=== PATIENT | male | born 1950 | race Caucasian/White ===

== ENCOUNTER 2017-08-02 02:48 | Outpatient (CLI) | payer MEDICARE, BC ==
[~2017-08-02 02:48] MED LIST: AMLO10TA PO; ASPI-1265 PO; ATOR-2 PO; CARV-49 PO; FURO20TA4 PO; GABA-532 PO; INSU100I31 SQ; INSU100V13 SQ; LEVO112T5 PO; MULT-1179 PO; MYCO250C PO; PANT40TA4 PO; TACR0.5C3 PO
== END 2017-08-02 23:59 | disposition home or self-care (01) ==
LOC: DIABETIC 02:48
PROVIDERS: ATTEND Specialist
DX: E10.65 Type 1 diabetes mellitus with hyperglycemia (principal); E10.22 Type 1 diabetes mellitus with diabetic chronic kidney disease; I12.9 Hypertensive chronic kidney disease with stage 1 through stage 4 chronic kidney disease, or unspecified chronic kidney disease; N18.9 Chronic kidney disease, unspecified
CPT/HCPCS: G0109

== ENCOUNTER 2018-02-06 15:51 | Emergency (ER) | payer MEDICARE, BC ==
[~2018-02-06] VITALS: Ht 182.9 cm; Wt 96.8 kg
[2018-02-06 17:16] VITALS: BP 113/61
== END 2018-02-06 17:45 | disposition home or self-care (01) ==
LOC: ER 15:51
DX: S92.521A Displaced fracture of middle phalanx of right lesser toe(s), initial encounter for closed fracture (principal); E11.9 Type 2 diabetes mellitus without complications; Z79.82 Long term (current) use of aspirin; Z79.4 Long term (current) use of insulin; W22.8XXA Striking against or struck by other objects, initial encounter; Y93.89 Activity, other specified; Y92.89 Other specified places as the place of occurrence of the external cause; Y99.8 Other external cause status
CPT/HCPCS: 73660; 99284; L3260

== ENCOUNTER 2018-10-17 14:41 | Inpatient (IN) | payer MEDICARE, BC | END 2018-10-20 10:45 | disposition home or self-care (01) | LOC: ER 14:41 → PCU 3S 20:31 | DX: I50.33 Acute on chronic diastolic (congestive) heart failure (principal); N18.6 End stage renal disease; Z94.0 Kidney transplant status; I95.1 Orthostatic hypotension; E11.21 Type 2 diabetes mellitus with diabetic nephropathy; E11.40 Type 2 diabetes mellitus with diabetic neuropathy, unspecified; I65.23 Occlusion and stenosis of bilateral carotid arteries ==

== ENCOUNTER 2019-01-31 10:35 | Inpatient (IN) | payer MEDICARE, BC ==
[~2019-01-31] VITALS: Ht 182.9 cm; Wt 96.4 kg
[~2019-01-31 10:35] MED LIST changes: -AMLO10TA PO; -CARV-49 PO; +CARV6.253 PO; +FLUT1DIS10 IH; +FOLI1TAB34 PO; -INSU100I31 SQ; +INSU100I31 SUBCUT; -LEVO112T5 PO; +LEVO125T68 PO; -MULT-1179 PO; -TACR0.5C3 PO; +TACR1CAP PO
--- NOTE | 2019-01-31 11:22 | NUR ---
PT GETTING LABS DRAWN IN ROOM 18
[2019-01-31 11:59] LABS: BASOPHILS # (AUTO) 0.1 X10'3 (0-0.2); BASOPHILS % (AUTO) 0.7 % (0-1); EOSINOPHILS % (AUTO) 0 % (0-6); HEMATOCRIT 40.6 % (42.0-52.0); HEMOGLOBIN 13.2 g/dl (14.0-17.9); LYMPHOCYTES # (AUTO) 0.2 X10'3 (1.1-4.8); LYMPHOCYTES % (AUTO) 1.7 % (21-51); MEAN CORPUSCULAR HEMOGLOBIN 27.7 PG (27.0-31.0); MEAN CORPUSCULAR HGB CONC 32.6 g/dL (33.0-36.5); MEAN CORPUSCULAR VOLUME 84.9 FL (78-98); MEAN PLATELET VOLUME 9.2 FL (7.4-10.4); MONOCYTES # (AUTO) 0.9 X10'3 (0-0.9); MONOCYTES % (AUTO) 6.2 % (2-12); NEUTROPHILS # (AUTO) 13.3 X10'3 (1.8-7.7); NEUTROPHILS % (AUTO) 91.4 % (42-75); PLATELET COUNT 147 X10'3 (140-440); RED BLOOD COUNT 4.78 X10'6 (4.70-6.10); RED CELL DISTRIBUTION WIDTH 14.3 % (11.5-14.5); WHITE BLOOD COUNT 14.6 X10'3 (4.5-11.0)
[2019-01-31 12:05] LABS: CLARITY,URINE CLOUDY (Clear); COLOR,URINE YELLOW (Yellow); GLUCOSE, URINE 500 mg/dl (Neg); KETONES,URINE NEGATIVE (Neg); LEUKOCYTE ESTERASE ,URINE LARGE (Neg); NITRITES, URINE NEGATIVE (Neg); OCCULT BLOOD,URINE MODERATE (Neg); PH,URINE 5.5 (4.8-8.0); PROTEIN,URINE 30 mg/dl (Neg); UROBILINOGEN,URINE 0.2 E.U/dL (0.2-1.0)
[2019-01-31 12:12] LABS: UA COLLECTION TYPE CLN CATCH MIDSTREAM
[2019-01-31 12:15] LABS: BACTERIA,URINE 4+ /HPF (Neg); WBC,URINE TNTC /HPF (0-4)
[2019-01-31 12:16] LABS: RBC,URINE 0-2 /HPF (0-2); SQUAMOUS EPITHELIAL CELL,UR FEW /LPF (FEW)
[2019-01-31 12:18] LABS: ALANINE AMINOTRANSFERASE 27 U/L (12-78); ALBUMIN 3.1 G/DL (3.4-5.0); ALBUMIN/GLOBULIN RATIO 0.9 (1.1-1.5); ALKALINE PHOSPHATASE 100 IU/L (46-116); ANION GAP 9 (8-16); ASPARTATE AMINO TRANSFERASE 16 U/L (10-37); BILIRUBIN,TOTAL 0.9 MG/DL (0.1-1.0); BLOOD UREA NITROGEN 36 MG/DL (7-18); BUN/CREATININE RATIO 14.7 (5.4-32.0); CALCIUM 8.8 MG/DL (8.5-10.1); CHLORIDE 95 MMOL/L (99-107); CREATININE 2.45 MG/DL (0.60-1.10); GLUCOSE 319 MG/DL (70-104); SODIUM 129 MMOL/L (135-145); TOTAL CARBON DIOXIDE 25.1 MMOL/L (24-32); TOTAL PROTEIN 6.7 G/DL (6.4-8.2); eGFR 27 ML/MIN
[2019-01-31 12:26] LABS: TRANSITIONAL EPI CELLS,URINE MODERATE /HPF
[2019-01-31 12:28] LABS: SPERM FEW /HPF (NEGATIVE)
[2019-01-31 12:38] LABS: PARTIAL THROMBOPLASTIN TIME 37 SECONDS (22-32)
[2019-01-31] MEDS ORDERED: CefTRIAXone 2gm/D5W 50ml 50 ML IV ONE (13:15)
[2019-01-31] MEDS ORDERED: normal saline 1000ML IV soln IVB ONE (13:15)
[2019-01-31] MEDS ORDERED: AMLO5TAB10 PO (13:39)
--- NOTE | 2019-01-31 14:18 | NUR ---
ADDITIONAL CALL TO [place] [facility], NO BEDS.
--- NOTE | 2019-01-31 16:03 | NUR ---
BS 266
[2019-01-31] MEDS ORDERED: potassium Cl 20 mEq SR tablet PO PRN ×2 (17:10)
[2019-01-31] MEDS ORDERED: MESSAGE TO PHARMACY PO ONE (17:10)
[2019-01-31] MEDS ORDERED: potassium CL 10mEq/100ml bag 100 ML IV PRN ×2 (17:10)
[2019-01-31] MEDS ORDERED: dextrose ORAL solution 15 GM/59 ML bottle PO PRN ×2 (17:10)
[2019-01-31] MEDS ORDERED: dextrose 50%-water 50ml dispensing syringe IV PRN ×2 (17:10)
[2019-01-31] MEDS ORDERED: acetaminophen 325mg tablet PO PRN ×2 (17:10)
[2019-01-31] MEDS ORDERED: glucagon, human recombinant 1mg kit SUBCUT PRN (17:10)
[2019-01-31] MEDS ORDERED: CefTRIAXone/D5W-Rocephin 1gm 50 ML IV ONE (17:15)
[2019-01-31] MEDS: normal saline 1000ml 1,000 ML IV SCH (17:42)
[2019-01-31 19:16] LABS: CLARITY,URINE TURBID (Clear); COLOR,URINE YELLOW (Yellow); GLUCOSE, URINE 250 mg/dl (Neg); KETONES,URINE NEGATIVE (Neg); LEUKOCYTE ESTERASE ,URINE MODERATE (Neg); NITRITES, URINE POSITIVE (Neg); OCCULT BLOOD,URINE MODERATE (Neg); PH,URINE 5.5 (4.8-8.0); PROTEIN,URINE 30 mg/dl (Neg); UROBILINOGEN,URINE 0.2 E.U/dL (0.2-1.0)
[2019-01-31 19:24] LABS: UA COLLECTION TYPE URINAL
[2019-01-31 19:26] LABS: RBC,URINE 0-2 /HPF (0-2); WBC,URINE 50-100 /HPF (0-4)
[2019-01-31 19:29] LABS: BACTERIA,URINE 3+ /HPF (Neg); COARSE GRANULAR CAST 0-3 /LPF (NEGATIVE); SQUAMOUS EPITHELIAL CELL,UR FEW /LPF (FEW)
[2019-01-31 19:30] VITALS: BP 174/64
[2019-01-31 19:54] LABS: UA EOSINOPHILS RARE EOS /HPF
[2019-01-31] MEDS ORDERED: tacrolimus anhydrous 1mg capsule PO SCH (20:00)
[2019-01-31] MEDS: docusate sod 100mg capsule PO SCH (20:00)
[2019-01-31] MEDS ORDERED: insulin glargine (Lantus) pen - multi-dose SQ SCH (20:00)
--- NOTE | 2019-01-31 20:00 | NUR ---
Received report from Jessee, will assess patient when he arrives. Will continue to monitor.
[2019-01-31] MEDS: carvedilol 6.25mg tablet PO SCH (20:13)
[2019-01-31] MEDS: gabapentin 300mg capsule PO SCH (20:14)
[2019-01-31] MEDS: atorvastatin 20mg tablet PO SCH (20:14)
[2019-01-31] MEDS: heparin, porcine 5000 units/ml vial SQ SCH (20:16)
[2019-01-31] MEDS ORDERED: temazepam 15mg capsule PO PRN (21:00)
[2019-01-31] MEDS: insulin glargine (Lantus) pen - multi-dose SQ SCH (22:14)
[2019-01-31] MEDS: insulin Lispro (HumaLOG) vial - multi-dose SQ SCH (22:15)
[2019-02-01] VITALS: BP 175/72
[2019-02-01 02:24] VITALS: BP 158/46
[2019-02-01] MEDS ORDERED: hydrALAZINE 20mg/ml inj. IV PRN (02:25)
[2019-02-01] MEDS: normal saline 1000ml 1,000 ML IV SCH ×2 (03:48→14:08)
[2019-02-01 06:21] LABS: BASOPHILS % (AUTO) 0.3 % (0-1); EOSINOPHILS % (AUTO) 0 % (0-6); HEMATOCRIT 39.1 % (42.0-52.0); HEMOGLOBIN 12.9 g/dl (14.0-17.9); LYMPHOCYTES # (AUTO) 0.4 X10'3 (1.1-4.8); LYMPHOCYTES % (AUTO) 3.3 % (21-51); MEAN CORPUSCULAR HEMOGLOBIN 27.8 PG (27.0-31.0); MEAN CORPUSCULAR VOLUME 84.3 FL (78-98); MEAN PLATELET VOLUME 10.2 FL (7.4-10.4); MONOCYTES % (AUTO) 9.1 % (2-12); NEUTROPHILS # (AUTO) 10.1 X10'3 (1.8-7.7); NEUTROPHILS % (AUTO) 87.3 % (42-75); PLATELET COUNT 146 X10'3 (140-440); RED BLOOD COUNT 4.64 X10'6 (4.70-6.10); RED CELL DISTRIBUTION WIDTH 14.3 % (11.5-14.5); WHITE BLOOD COUNT 11.5 X10'3 (4.5-11.0)
[2019-02-01 06:31] LABS: ALANINE AMINOTRANSFERASE 22 U/L (12-78); ALBUMIN 2.5 G/DL (3.4-5.0); ALBUMIN/GLOBULIN RATIO 0.7 (1.1-1.5); ALKALINE PHOSPHATASE 103 IU/L (46-116); ANION GAP 9 (8-16); ASPARTATE AMINO TRANSFERASE 17 U/L (10-37); BILIRUBIN,TOTAL 0.6 MG/DL (0.1-1.0); BLOOD UREA NITROGEN 31 MG/DL (7-18); BUN/CREATININE RATIO 16.9 (5.4-32.0); CALCIUM 8.5 MG/DL (8.5-10.1); CHLORIDE 99 MMOL/L (99-107); CREATININE 1.83 MG/DL (0.60-1.10); GLUCOSE 264 MG/DL (70-104); MAGNESIUM 1.7 MG/DL (1.5-2.4); PHOSPHORUS 2.7 MG/DL (2.3-4.5); POTASSIUM 4.8 MMOL/L (3.5-5.1); SODIUM 132 MMOL/L (135-145); TOTAL CARBON DIOXIDE 24.1 MMOL/L (24-32); TOTAL PROTEIN 6.1 G/DL (6.4-8.2); eGFR 37 ML/MIN
--- NOTE | 2019-02-01 06:57 | NUR ---
Problems reprioritized. Patient report given, questions answered & plan of care reviewed with Bárbara BOBO.
[2019-02-01] MEDS ORDERED: non-formulary drug (Insulin Aspart (Novolog) 1 UNITS) SQ SCH (07:00)
[2019-02-01 08:00] VITALS: BP 148/60
[2019-02-01] MEDS: K and/or MAG REPLACEMENT MC SCH (08:00)
[2019-02-01] MEDS: docusate sod 100mg capsule PO SCH ×2 (08:00→20:00)
[2019-02-01] MEDS: amLODIPine 5mg tablet PO SCH (08:51)
[2019-02-01] MEDS: carvedilol 6.25mg tablet PO SCH ×2 (08:51→20:07)
[2019-02-01] MEDS: levoTHYROXINE 125mcg tablet PO SCH (08:52)
[2019-02-01] MEDS: folic acid/vitamin B complex w/vitamin C 0.8mg tablet PO SCH (08:52)
[2019-02-01] MEDS: aspirin 81mg tab.chew PO SCH (08:52)
[2019-02-01] MEDS: heparin, porcine 5000 units/ml vial SQ SCH ×2 (08:55→20:08)
[2019-02-01] MEDS: CefTRIAXone/D5W-Rocephin 1gm 50 ML IV SCH (09:33)
[2019-02-01] MEDS: ondansetron/PF 4mg/2ml inj IV PRN ×2 (09:38→17:16)
[2019-02-01] MEDS: insulin Lispro (HumaLOG) vial - multi-dose SQ SCH ×4 (09:45→21:50)
--- NOTE | 2019-02-01 10:00 | NUR ---
Nausea Medication Provided with 100% effectiveness.
[2019-02-01 11:00] VITALS: BP 159/60
[2019-02-01] MEDS: tacrolimus anhydrous 1mg capsule PO SCH ×2 (11:39→23:00)
--- NOTE | 2019-02-01 16:22 | NUR ---
Odors Provoke nausea, room is cleaned deodorized and TV is repaired per family request. Request for new bed assignment is considered, however it is based on complaints of odor and TV disfunction. Nursing has attended to any smells that may be in the room. Engineering has repaired the TV and it is functioning normally.
--- NOTE | 2019-02-01 16:26 | NUR ---
Malnutrition consult: Pt with no edema or significant decrease in muscle strength. Current wt stable with documented wt hx. No visible fat or muscle wasting. Pt currently does not meet criteria for malnutrition. DM consult: Pt with A1c 8.0 seen at bedside provided with written DM ed with referral to outpatient DM class and RD contact information. Pt admit with gastroenteritis, UTI, and CHI with hx ESRD s/p kidney transplant. Pt endorses a low appetite at this time stating he is getting more food on his meal trays than what he would normally eat. Pt with no food preferences at this time. Currently documented with 25-50% PO intake on CHO controlled diet. [facility] 02/01. Will continue to follow and monitor need for ONS. Recommendations: 1) Continue CHO controlled diet 2) Monitor need for ONS 3) Wt per rx Addendum: 02/01/19 at [address] Amended: Links added.
[2019-02-01 19:30] VITALS: BP 167/55
--- NOTE | 2019-02-01 19:30 | NUR ---
pt had x2 recent voids in urinal of 100ml each time; pt states; "not sure if emptying"; bladder scanned shows only 40ml Addendum: 02/02/19 at 0255 by Oly العلي RN Amended: Links added.
[2019-02-01] MEDS: lactobacillus rhamnosus 10,000 MMU CELLS/CAPSULE PO SCH (20:07)
[2019-02-01] MEDS: gabapentin 300mg capsule PO SCH (20:07)
[2019-02-01] MEDS: atorvastatin 20mg tablet PO SCH (20:08)
[2019-02-01 21:30] VITALS: BP 94/55
[2019-02-01] MEDS: insulin glargine (Lantus) pen - multi-dose SQ SCH (21:46)
[2019-02-02] VITALS: BP 144/56
[2019-02-02] MEDS: normal saline 1000ml 1,000 ML IV SCH ×3 (01:04→09:10)
[2019-02-02 06:22] LABS: ALANINE AMINOTRANSFERASE 24 U/L (12-78); ALBUMIN 2.1 G/DL (3.4-5.0); ALBUMIN/GLOBULIN RATIO 0.7 (1.1-1.5); ALKALINE PHOSPHATASE 81 IU/L (46-116); ANION GAP 8 (8-16); ASPARTATE AMINO TRANSFERASE 23 U/L (10-37); BILIRUBIN,TOTAL 0.4 MG/DL (0.1-1.0); BLOOD UREA NITROGEN 28 MG/DL (7-18); BUN/CREATININE RATIO 17.5 (5.4-32.0); CALCIUM 8.1 MG/DL (8.5-10.1); CHLORIDE 104 MMOL/L (99-107); GLUCOSE 96 MG/DL (70-104); MAGNESIUM 1.8 MG/DL (1.5-2.4); PHOSPHORUS 2.9 MG/DL (2.3-4.5); POTASSIUM 4.6 MMOL/L (3.5-5.1); SODIUM 136 MMOL/L (135-145); TOTAL CARBON DIOXIDE 24.5 MMOL/L (24-32); TOTAL PROTEIN 5.3 G/DL (6.4-8.2); eGFR 43 ML/MIN
[2019-02-02 06:30] LABS: BASOPHILS % (AUTO) 0.3 % (0-1); HEMOGLOBIN 11.7 g/dl (14.0-17.9); LYMPHOCYTES # (AUTO) 0.8 X10'3 (1.1-4.8); MONOCYTES # (AUTO) 1.5 X10'3 (0-0.9)
[2019-02-02 06:32] LABS: EOSINOPHILS % (AUTO) 0.3 % (0-6); HEMATOCRIT 35.4 % (42.0-52.0); MEAN CORPUSCULAR HEMOGLOBIN 28.2 PG (27.0-31.0); MEAN CORPUSCULAR HGB CONC 33.1 g/dL (33.0-36.5); MEAN CORPUSCULAR VOLUME 85.3 FL (78-98); MEAN PLATELET VOLUME 9.9 FL (7.4-10.4); MONOCYTES % (AUTO) 15.1 % (2-12); NEUTROPHILS # (AUTO) 7.4 X10'3 (1.8-7.7); NEUTROPHILS % (AUTO) 76.3 % (42-75); PLATELET COUNT 139 X10'3 (140-440); RED BLOOD COUNT 4.15 X10'6 (4.70-6.10); RED CELL DISTRIBUTION WIDTH 14.1 % (11.5-14.5); WHITE BLOOD COUNT 9.7 X10'3 (4.5-11.0)
--- NOTE | 2019-02-02 06:58 | NUR ---
Patient in room LYNDA 349. I have received report from PAT RN and had the opportunity to ask questions and assume patient care.
[2019-02-02 07:19] VITALS: BP 170/53
[2019-02-02 07:28] LABS: PLATELET ESTIMATE DECREASED; TOTAL CELLS COUNTED 100
[2019-02-02 07:29] LABS: BURR CELLS FEW; ELLIPTOCYTES FEW; POIKILOCYTOSIS 1+; SCHISTOCYTES FEW
[2019-02-02] MEDS: docusate sod 100mg capsule PO SCH ×2 (07:47→20:27)
[2019-02-02] MEDS: aspirin 81mg tab.chew PO SCH (07:47)
[2019-02-02] MEDS: carvedilol 6.25mg tablet PO SCH ×2 (07:47→20:27)
[2019-02-02] MEDS: CefTRIAXone/D5W-Rocephin 1gm 50 ML IV SCH (07:47)
[2019-02-02] MEDS: folic acid/vitamin B complex w/vitamin C 0.8mg tablet PO SCH (07:47)
[2019-02-02] MEDS: amLODIPine 5mg tablet PO SCH (07:47)
[2019-02-02] MEDS: lactobacillus rhamnosus 10,000 MMU CELLS/CAPSULE PO SCH ×2 (07:47→20:26)
[2019-02-02] MEDS: levoTHYROXINE 125mcg tablet PO SCH (07:47)
[2019-02-02] MEDS: heparin, porcine 5000 units/ml vial SQ SCH ×2 (07:48→20:27)
[2019-02-02] MEDS: K and/or MAG REPLACEMENT MC SCH (08:00)
[2019-02-02] MEDS: insulin Lispro (HumaLOG) vial - multi-dose SQ SCH ×3 (09:58→19:11)
[2019-02-02 10:40] VITALS: BP 165/61
[2019-02-02] MEDS: tacrolimus anhydrous 1mg capsule PO SCH ×2 (12:09→23:42)
--- NOTE | 2019-02-02 18:08 | NUR ---
patient seen by Dr maradiaga and Pauline lsat, to continue care today. patient appears comfortable. No complaint of pain. report given to ida BOBO
[2019-02-02 19:00] VITALS: BP 165/60
[2019-02-02] MEDS: gabapentin 300mg capsule PO SCH (20:26)
[2019-02-02] MEDS: mycophenolate mofetil 250mg capsule PO SCH (20:26)
[2019-02-02] MEDS: atorvastatin 20mg tablet PO SCH (20:26)
[2019-02-02] MEDS: pantoprazole 40mg Tablet.DR PO SCH (20:27)
[2019-02-02] MEDS: insulin glargine (Lantus) pen - multi-dose SQ SCH (21:10)
[2019-02-03] VITALS: BP 162/69
[2019-02-03 06:11] LABS: EOSINOPHILS # (AUTO) 0.1 X10'3 (0-0.9); HEMATOCRIT 36.5 % (42.0-52.0); HEMOGLOBIN 12.2 g/dl (14.0-17.9); MEAN CORPUSCULAR HGB CONC 33.3 g/dL (33.0-36.5); RED BLOOD COUNT 4.38 X10'6 (4.70-6.10); WHITE BLOOD COUNT 7.3 X10'3 (4.5-11.0)
[2019-02-03 06:13] LABS: BASOPHILS % (AUTO) 0.6 % (0-1); EOSINOPHILS % (AUTO) 1.3 % (0-6); LYMPHOCYTES # (AUTO) 0.9 X10'3 (1.1-4.8); LYMPHOCYTES % (AUTO) 11.7 % (21-51); MEAN CORPUSCULAR HEMOGLOBIN 27.8 PG (27.0-31.0); MEAN CORPUSCULAR VOLUME 83.4 FL (78-98); MEAN PLATELET VOLUME 10.2 FL (7.4-10.4); MONOCYTES # (AUTO) 1.4 X10'3 (0-0.9); NEUTROPHILS % (AUTO) 67.4 % (42-75); PLATELET COUNT 166 X10'3 (140-440); RED CELL DISTRIBUTION WIDTH 14.4 % (11.5-14.5)
--- NOTE | 2019-02-03 06:26 | NUR ---
Problems reprioritized. Patient report given, questions answered & plan of care reviewed with Renetta BOBO. Addendum: 02/03/19 at 0626 by Celi Friend RN Amended: Links added.
[2019-02-03 06:29] LABS: ALANINE AMINOTRANSFERASE 33 U/L (12-78); ALBUMIN 2.2 G/DL (3.4-5.0); ALBUMIN/GLOBULIN RATIO 0.6 (1.1-1.5); ALKALINE PHOSPHATASE 83 IU/L (46-116); ANION GAP 10 (8-16); ASPARTATE AMINO TRANSFERASE 35 U/L (10-37); BILIRUBIN,TOTAL 0.4 MG/DL (0.1-1.0); BLOOD UREA NITROGEN 24 MG/DL (7-18); BUN/CREATININE RATIO 17.5 (5.4-32.0); CALCIUM 8.5 MG/DL (8.5-10.1); CHLORIDE 103 MMOL/L (99-107); CREATININE 1.37 MG/DL (0.60-1.10); GLUCOSE 132 MG/DL (70-104); MAGNESIUM 1.9 MG/DL (1.5-2.4); PHOSPHORUS 2.9 MG/DL (2.3-4.5); POTASSIUM 4.1 MMOL/L (3.5-5.1); SODIUM 136 MMOL/L (135-145); TOTAL CARBON DIOXIDE 23.2 MMOL/L (24-32); TOTAL PROTEIN 5.6 G/DL (6.4-8.2); eGFR 52 ML/MIN
[2019-02-03 06:30] VITALS: BP 176/65
--- NOTE | 2019-02-03 06:35 | NUR ---
Patient in room LYNDA 349. I have received report from JIHAN Alatorre and had the opportunity to ask questions and assume patient care.
[2019-02-03] MEDS: K and/or MAG REPLACEMENT MC SCH (07:16)
[2019-02-03] MEDS: CefTRIAXone/D5W-Rocephin 1gm 50 ML IV SCH (08:37)
[2019-02-03] MEDS: docusate sod 100mg capsule PO SCH (08:38)
[2019-02-03] MEDS: levoTHYROXINE 125mcg tablet PO SCH (08:38)
[2019-02-03] MEDS: lactobacillus rhamnosus 10,000 MMU CELLS/CAPSULE PO SCH (08:38)
[2019-02-03] MEDS: mycophenolate mofetil 250mg capsule PO SCH (08:38)
[2019-02-03] MEDS: carvedilol 6.25mg tablet PO SCH (08:38)
[2019-02-03] MEDS: heparin, porcine 5000 units/ml vial SQ SCH (08:38)
[2019-02-03] MEDS: amLODIPine 5mg tablet PO SCH (08:39)
[2019-02-03] MEDS: pantoprazole 40mg Tablet.DR PO SCH (08:41)
[2019-02-03] MEDS: tacrolimus anhydrous 1mg capsule PO SCH (08:42)
[2019-02-03] MEDS: folic acid/vitamin B complex w/vitamin C 0.8mg tablet PO SCH (08:42)
[2019-02-03] MEDS: aspirin 81mg tab.chew PO SCH (08:42)
[2019-02-03] MEDS: insulin Lispro (HumaLOG) vial - multi-dose SQ SCH ×2 (08:56→13:49)
[2019-02-03 11:30] VITALS: BP 146/49
[2019-02-03] MEDS ORDERED: LEVO500T2 PO (14:32)
--- NOTE | 2019-02-03 17:40 | NUR ---
DC inst provided to pt. IV DC'd, tip intact. All belongings sent w/pt. WC to front lobby.
== END 2019-02-03 17:40 | disposition home or self-care (01) | DRG 872 ==
LOC: ER 10:36 → SUR 3N 19:31
PROVIDERS: ADMIT Internal Medicine Critical Care Medicine; ATTEND Internal Medicine Critical Care Medicine
DX: A41.51 Sepsis due to Escherichia coli [E. coli] (principal); N17.9 Acute kidney failure, unspecified; T86.12 Kidney transplant failure; K52.9 Noninfective gastroenteritis and colitis, unspecified; N30.90 Cystitis, unspecified without hematuria; B96.20 Unspecified Escherichia coli [E. coli] as the cause of diseases classified elsewhere; E11.9 Type 2 diabetes mellitus without complications; Y83.0 Surgical operation with transplant of whole organ as the cause of abnormal reaction of the patient, or of later complication, without mention of misadventure at the time of the procedure; I95.9 Hypotension, unspecified; K59.00 Constipation, unspecified; E86.0 Dehydration; Z83.3 Family history of diabetes mellitus; Z88.6 Allergy status to analgesic agent; Z88.8 Allergy status to other drugs, medicaments and biological substances; Z79.82 Long term (current) use of aspirin; Z79.899 Other long term (current) drug therapy; Z79.4 Long term (current) use of insulin; Y92.89 Other specified places as the place of occurrence of the external cause
CPT/HCPCS: 36415; 80053; 81001; 82570; 82948; 83036; 83605; 83735; 84100; 84145; 84300; 85025; 85610; 85730; 87040; 87077; 87081; 87088; 87186; 87207; 96365; 99291; G0378; J0696; J1644; J1815; J2405; J7030; J7507; J7517

== ENCOUNTER 2019-03-29 08:30 | Day surgery (SDC) | payer MEDICARE, BC ==
[~2019-03-29 08:30] MED LIST changes: +AMLO5TAB10 PO; -FLUT1DIS10 IH
[2019-03-29] MEDS ORDERED: LIDOcaine 2% 5ml jelly ONE (09:46)
== END 2019-03-29 10:25 | disposition home or self-care (01) ==
LOC: WOUND CARE 08:30
PROVIDERS: ATTEND Surgery
DX: E11.622 Type 2 diabetes mellitus with other skin ulcer (principal); I70.242 Atherosclerosis of native arteries of left leg with ulceration of calf; L97.821 Non-pressure chronic ulcer of other part of left lower leg limited to breakdown of skin; I25.10 Atherosclerotic heart disease of native coronary artery without angina pectoris; E86.0 Dehydration; Z86.718 Personal history of other venous thrombosis and embolism; Z79.82 Long term (current) use of aspirin; Z79.4 Long term (current) use of insulin; Z79.899 Other long term (current) drug therapy; Z94.0 Kidney transplant status
CPT/HCPCS: 82948; 97597; A4663; A6021; A6154; A6212

== ENCOUNTER 2019-04-03 10:20 | Day surgery (SDC) | payer MEDICARE, BC ==
[2019-04-03] MEDS ORDERED: LIDOcaine 2% 5ml jelly ONE (11:26)
== END 2019-04-03 11:53 | disposition home or self-care (01) ==
LOC: WOUND CARE 10:20
PROVIDERS: ATTEND Surgery
DX: E11.622 Type 2 diabetes mellitus with other skin ulcer (principal); I70.242 Atherosclerosis of native arteries of left leg with ulceration of calf; L97.821 Non-pressure chronic ulcer of other part of left lower leg limited to breakdown of skin; I25.10 Atherosclerotic heart disease of native coronary artery without angina pectoris; E86.0 Dehydration; Z86.718 Personal history of other venous thrombosis and embolism; Z79.82 Long term (current) use of aspirin; Z79.4 Long term (current) use of insulin; Z79.899 Other long term (current) drug therapy; Z94.0 Kidney transplant status
CPT/HCPCS: 82948; G0463; A4663; A6021; A6446

== ENCOUNTER 2019-04-10 09:55 | Outpatient (CLI) | payer MEDICARE, BC | END 2019-04-10 11:30 | disposition home or self-care (01) | LOC: WOUND CARE 09:55 → EDSTATUS 10:00 → WOUND CARE 11:30 | PROVIDERS: ATTEND Surgery | DX: E11.622 Type 2 diabetes mellitus with other skin ulcer (principal); I70.242 Atherosclerosis of native arteries of left leg with ulceration of calf; L97.821 Non-pressure chronic ulcer of other part of left lower leg limited to breakdown of skin; I25.10 Atherosclerotic heart disease of native coronary artery without angina pectoris; E86.0 Dehydration; Z86.718 Personal history of other venous thrombosis and embolism; Z79.82 Long term (current) use of aspirin; Z79.4 Long term (current) use of insulin; Z79.899 Other long term (current) drug therapy; Z94.0 Kidney transplant status | CPT/HCPCS: 93922; 93926; G0463; A4663; A6213 ==

== ENCOUNTER 2019-05-19 08:22 | Inpatient (IN) | payer MEDICARE, BC ==
[~2019-05-19] VITALS: Ht 182.9 cm; Wt 96.4 kg
[2019-05-19 09:33] LABS: BASOPHILS # (AUTO) 0.1 X10'3 (0-0.2); EOSINOPHILS # (AUTO) 0.2 X10'3 (0-0.9); EOSINOPHILS % (AUTO) 2.1 % (0-6); HEMATOCRIT 40.1 % (42.0-52.0); HEMOGLOBIN 13.4 g/dl (14.0-17.9); LYMPHOCYTES # (AUTO) 0.6 X10'3 (1.1-4.8); LYMPHOCYTES % (AUTO) 8.8 % (21-51); MEAN CORPUSCULAR HEMOGLOBIN 28.2 PG (27.0-31.0); MEAN CORPUSCULAR HGB CONC 33.3 g/dL (33.0-36.5); MEAN CORPUSCULAR VOLUME 84.8 FL (78-98); MEAN PLATELET VOLUME 9.2 FL (7.4-10.4); NEUTROPHILS # (AUTO) 5.5 X10'3 (1.8-7.7); NEUTROPHILS % (AUTO) 75.1 % (42-75); PLATELET COUNT 152 X10'3 (140-440); RED BLOOD COUNT 4.74 X10'6 (4.70-6.10); RED CELL DISTRIBUTION WIDTH 14.7 % (11.5-14.5); WHITE BLOOD COUNT 7.3 X10'3 (4.5-11.0)
[2019-05-19 09:44] LABS: PARTIAL THROMBOPLASTIN TIME 31 SECONDS (22-32)
[2019-05-19 09:45] LABS: ALANINE AMINOTRANSFERASE 34 U/L (12-78); ALBUMIN 4.1 G/DL (3.4-5.0); ALBUMIN/GLOBULIN RATIO 1.2 (1.1-1.5); ALKALINE PHOSPHATASE 107 IU/L (46-116); ANION GAP 1 (8-16); ASPARTATE AMINO TRANSFERASE 21 U/L (10-37); BILIRUBIN,TOTAL 0.5 MG/DL (0.1-1.0); BLOOD UREA NITROGEN 28 MG/DL (7-18); BUN/CREATININE RATIO 15.3 (5.4-32.0); CALCIUM 8.9 MG/DL (8.5-10.1); CHLORIDE 99 MMOL/L (99-107); CREATININE 1.83 MG/DL (0.60-1.10); GLUCOSE 299 MG/DL (70-104); POTASSIUM 5.3 MMOL/L (3.5-5.1); SODIUM 131 MMOL/L (135-145); TOTAL CARBON DIOXIDE 30.6 MMOL/L (24-32); TOTAL PROTEIN 7.4 G/DL (6.4-8.2); eGFR 37 ML/MIN
[2019-05-19 09:50] LABS: TROPONIN I < 0.04 NG/ML (0.0-0.05)
[2019-05-19] MEDS ORDERED: CefTRIAXone/D5W-Rocephin 1gm 50 ML IV SCH (10:25)
[2019-05-19] MEDS ORDERED: benzonatate 100mg capsule PO ONE (10:25)
[2019-05-19] MEDS ORDERED: CEPH-572 PO (10:54)
[2019-05-19] MEDS ORDERED: ATOR80TA PO (12:24)
[2019-05-19] MEDS ORDERED: LEVO112T39 PO (12:24)
[2019-05-19] MEDS ORDERED: CARV3.122 PO (12:26)
[2019-05-19] MEDS ORDERED: MULT1TAB70 (12:28)
[2019-05-19] MEDS ORDERED: FOLI0.8T7 PO (12:32)
[2019-05-19] MEDS ORDERED: potassium CL 10mEq/100ml bag 100 ML IV PRN ×2 (12:35)
[2019-05-19] MEDS ORDERED: magnesium 2GM in 50ml NS 50 ML IV PRN (12:35)
[2019-05-19] MEDS ORDERED: acetaminophen 325mg tablet PO PRN (12:35)
[2019-05-19] MEDS ORDERED: magnesium 4gm in 100ml NS 100 ML IV PRN (12:35)
[2019-05-19] MEDS ORDERED: magnesium Cl slow-release 64mg tablet PO PRN (12:35)
[2019-05-19] MEDS ORDERED: potassium Cl 20 mEq SR tablet PO PRN ×2 (12:35)
[2019-05-19] MEDS ORDERED: ondansetron/PF 4mg/2ml inj IV PRN (12:35)
[2019-05-19 13:41] LABS: ABG BASE EXCESS -1.1 mmol/L (-2.0-3.0); ABG HCO3 23.7 mmol/L (22.0-26.0); ABG OXYGEN SATURATION 92.6 % (95-98); ABG PCO2 (T) 39.6 mmHg (35.0-45.0); ABG PH (T) 7.394 (7.350-7.450); ABG PO2 (T) 62.2 mmHg (83-108); ALLEN'S TEST Positive; FCOHb 0.7 % (0.5-1.5); FMetHb 0.1 % (0.3-1.12); FO2Hb 91.9 % (94-100); TOTAL HEMOGLOBIN 13.3 G/dl (14.0-17.9)
[2019-05-19 14:15] VITALS: BP 158/69
--- NOTE | 2019-05-19 14:15 | NUR ---
Patient in room ORTHO 4013B. I have received report from RENE BOBO and had the opportunity to ask questions and assume patient care.
--- NOTE | 2019-05-19 14:15 | NUR ---
PT ARRIVED ON FLOOR FROM ER IN STABLE CONDITION
[2019-05-19 16:15] VITALS: BP 164/83
--- NOTE | 2019-05-19 16:55 | NUR ---
PAGER ID: [phone] MESSAGE: YASMIN 5430-RE: JOSE ESPINOSA [id number] PLEASE COMPLETE MED REC. THANK YOU.
[2019-05-19] MEDS ORDERED: azithromycin/NS 500mg/250ml 250 ML IV ONE (17:45)
[2019-05-19 18:00] VITALS: BP 177/38
--- NOTE | 2019-05-19 19:04 | NUR ---
RECEIVED REPORT FROM SANDY BOBO AND ASSUMED PATIENT CARE
[2019-05-19] MEDS: K and/or MAG REPLACEMENT MC SCH (20:00)
[2019-05-19] MEDS: levoTHYROXINE 112mcg tablet PO SCH (20:09)
[2019-05-19] MEDS: gabapentin 300mg capsule PO SCH (20:10)
[2019-05-19] MEDS: CefTRIAXone/D5W-Rocephin 1gm 50 ML IV SCH (20:10)
[2019-05-19] MEDS: mycophenolate mofetil 250mg capsule PO SCH (20:10)
[2019-05-19] MEDS: pantoprazole 40mg Tablet.DR PO SCH (20:10)
[2019-05-19] MEDS: atorvastatin 20mg tablet PO SCH (20:10)
[2019-05-19] MEDS: carVEDilol 3.125mg tablet PO SCH (20:10)
[2019-05-19] MEDS: aspirin 81mg tab.chew PO SCH (20:11)
[2019-05-19] MEDS: tacrolimus anhydrous 1mg capsule PO SCH (20:11)
[2019-05-19] MEDS: normal saline 1000ml 1,000 ML IV SCH (20:18)
[2019-05-19] MEDS ORDERED: non-formulary drug (Atorvastatin Calcium* (Lipitor*) 1 TABLET) PO SCH (21:00)
[2019-05-19] MEDS ORDERED: dextrose 50%-water 50ml dispensing syringe IV PRN ×2 (21:20)
[2019-05-19] MEDS ORDERED: dextrose ORAL solution 15 GM/59 ML bottle PO PRN ×2 (21:20)
[2019-05-19] MEDS ORDERED: MESSAGE TO PHARMACY PO ONE (21:20)
[2019-05-19] MEDS ORDERED: glucagon, human recombinant 1mg kit SUBCUT PRN (21:20)
--- NOTE | 2019-05-19 21:58 | NUR ---
PATIENT HYPERGLYCEMIC. CALL TO DR. CARVAJAL FOR ORDERS. HYPERGLYCEMIC PROTOCOL ORDERED. SPOKE TO PATIENT WHO IS CONCERNED ABOUT TAKING INSULIN BECAUSE HE DIDN'T EAT DINNER. OFFERED FOOD AND EDUCATED PATIENT ABOUT OUR HYPERGLYCEMIC PROTOCOL INCLUDING GIVING HIM LONG ACTING INSULIN. STATED HE WOULD BE MORE COMFORTABLE STARTING THE PROTOCOL IN THE MORNING.
[2019-05-19 22:00] VITALS: BP 161/61
[2019-05-19 22:06] LABS: HEMOGLOBIN A1C 8.8 % (4.5-6.2)
[2019-05-20] VITALS (7 sets, daily range): BP systolic 103–184; BP diastolic 60–96
--- NOTE | 2019-05-20 00:21 | NUR ---
2345 NOTED SWELLING TO UPPER RIGHT ARM NEAR IV SITE. AT INITIAL TIME OF INFUSION AND ASSESSMENT OF IV, NO SWELLING NOTED TO AREA AND IV PATENT. STOPPED INFUSION OF ZITHROMAX AND DISCONTINUED IV. APPROXIMATELY HALF BAG OF ZITHROMAX INFUSED. NOTED SLIGHT REDNESS TO SITE. PT COMPLAINS OF BURNING TO AREA. ELEVATED EXTREMITY. 0015 RIGHT UPPER ARM SWELLING AND REDNESS DECREASED. PT STILL C/O BURNING. WILL CONTINUE TO CLOSELY MONITOR.
--- NOTE | 2019-05-20 05:08 | NUR ---
PT STATES PAIN IN RIGHT UPPER ARM SIGNIFICANTLY BETTER. NO REDNESS OR SWELLING NOTED. NEW IV STARTED IN HAND ON FIRST ATTEMPT.
--- NOTE | 2019-05-20 06:26 | NUR ---
REPORT GIVEN TO YASMIN BOBO
--- NOTE | 2019-05-20 06:51 | NUR ---
Patient in room ORTHO 4013B. I have received report from DEEPA BOBO and had the opportunity to ask questions and assume patient care.
[2019-05-20 07:22] LABS: BASOPHILS % (AUTO) 0.6 % (0-1); EOSINOPHILS % (AUTO) 0.9 % (0-6); HEMATOCRIT 37.1 % (42.0-52.0); HEMOGLOBIN 12.4 g/dl (14.0-17.9); LYMPHOCYTES # (AUTO) 0.7 X10'3 (1.1-4.8); LYMPHOCYTES % (AUTO) 13.2 % (21-51); MEAN CORPUSCULAR HEMOGLOBIN 28.6 PG (27.0-31.0); MEAN CORPUSCULAR HGB CONC 33.5 g/dL (33.0-36.5); MEAN CORPUSCULAR VOLUME 85.3 FL (78-98); MEAN PLATELET VOLUME 9.4 FL (7.4-10.4); MONOCYTES # (AUTO) 0.7 X10'3 (0-0.9); MONOCYTES % (AUTO) 13.1 % (2-12); NEUTROPHILS # (AUTO) 3.9 X10'3 (1.8-7.7); NEUTROPHILS % (AUTO) 72.2 % (42-75); PLATELET COUNT 138 X10'3 (140-440); RED BLOOD COUNT 4.35 X10'6 (4.70-6.10); RED CELL DISTRIBUTION WIDTH 14.7 % (11.5-14.5); WHITE BLOOD COUNT 5.4 X10'3 (4.5-11.0)
[2019-05-20 07:39] LABS: ALBUMIN 3.3 G/DL (3.4-5.0); ANION GAP 7 (8-16); BLOOD UREA NITROGEN 27 MG/DL (7-18); BUN/CREATININE RATIO 16.6 (5.4-32.0); CALCIUM 8.5 MG/DL (8.5-10.1); CHLORIDE 101 MMOL/L (99-107); CREATININE 1.63 MG/DL (0.60-1.10); GLUCOSE 237 MG/DL (70-104); MAGNESIUM 1.9 MG/DL (1.5-2.4); POTASSIUM 4.9 MMOL/L (3.5-5.1); SODIUM 135 MMOL/L (135-145); TOTAL CARBON DIOXIDE 27.4 MMOL/L (24-32); eGFR 42 ML/MIN
[2019-05-20] MEDS: K and/or MAG REPLACEMENT MC SCH ×2 (08:00→20:00)
[2019-05-20] MEDS: aspirin 81mg tab.chew PO SCH (08:22)
[2019-05-20] MEDS: levoTHYROXINE 112mcg tablet PO SCH (08:23)
[2019-05-20] MEDS: folic acid/vitamin B complex w/vitamin C 0.8mg tablet PO SCH (08:23)
[2019-05-20] MEDS: carVEDilol 3.125mg tablet PO SCH ×2 (08:24→21:01)
[2019-05-20] MEDS: pantoprazole 40mg Tablet.DR PO SCH ×2 (08:24→21:02)
[2019-05-20] MEDS: amLODIPine 5mg tablet PO SCH (08:24)
[2019-05-20] MEDS: tacrolimus anhydrous 1mg capsule PO SCH ×2 (08:26→21:01)
[2019-05-20] MEDS: mycophenolate mofetil 250mg capsule PO SCH ×2 (08:27→21:01)
[2019-05-20] MEDS: CefTRIAXone/D5W-Rocephin 1gm 50 ML IV SCH (08:30)
--- NOTE | 2019-05-20 08:42 | NUR ---
PAGER ID: [phone] MESSAGE: YASMIN [id number]-RE:FRANCISCA JOSE [id number]...CAN I GET AN ORDER FOR COUGH SUPPRESSANT, PT NEEDS MRI AND IS UNABLE TO LAY FLAT WITHOUT COUGHING? THANK YOU.
[2019-05-20] MEDS: benzonatate 100mg capsule PO PRN ×2 (09:18→21:06)
[2019-05-20] MEDS: insulin Lispro (HumaLOG) vial - multi-dose SQ SCH ×3 (09:34→19:12)
--- NOTE | 2019-05-20 14:45 | NUR ---
DM consult: Pt documented with A1C of 8.8. RD visited pt at bedside, however pt was not in the room. RD left written DM education and referral to CDE class with RD contact information at bedside. Pt eating fair, PO 50-75% on carb controlled diet meeting nutrient needs. [facility] 05/19. Will continue to monitor. Addendum: 05/20/19 at 1445 by Wing Kodi PEÑA Amended: Links added.
[2019-05-20] MEDS: normal saline 1000ml 1,000 ML IV SCH (17:46)
--- NOTE | 2019-05-20 18:13 | NUR ---
Problems reprioritized. Patient report given, questions answered & plan of care reviewed with DEEPA BOBO.
--- NOTE | 2019-05-20 18:31 | NUR ---
RECEIVED REPORT FROM YASMIN BOBO AND ASSUMED PATIENT CARE
--- NOTE | 2019-05-20 19:09 | NUR ---
WENT IN TO ROUND AND INTRODUCE SELF TO PATIENT. SAID HE WAS LOOKING FOR HIS "PILL BOX TO GET HIS MEDS". I ASKED HIM WHERE HE THOUGHT THEY WERE AND HE SAID PROBABLY IN THE CUPBOARD? ASKED PATIENT WHERE HE THOUGHT HE WAS. LOOKED AT ME CONFUSED FOR A SECOND THEN TOLD ME HE WAS IN THE HOSPITAL. EXPLAINED I WILL ADMINISTER MEDS WHEN THEY ARE DUE. APPEARED TO UNDERSTAND.
[2019-05-20] MEDS ORDERED: insulin glargine (Lantus) pen - multi-dose SQ SCH (21:00)
[2019-05-20] MEDS: gabapentin 300mg capsule PO SCH (21:02)
[2019-05-20] MEDS: atorvastatin 20mg tablet PO SCH (21:02)
--- NOTE | 2019-05-21 05:40 | NUR ---
PATIENT CONTINUES TO EXHIBIT ODD BEHAVIOR THOUGH THE NIGHT. APPROX 0200 PATIENT HIT CALL LIGHT AND WHEN I ASKED HIM WHY HE SAID HE NEEDS TO GET BACK TO THE HOSPITAL. WHEN ASKED WHERE HE WAS STATES HE IS IN THE HOSPITAL. AROUND 0230 FOUND PATIENT WITHOUT HIS GOWN ON AT DOORWAY ASKING PASSING HAND STONER "WHAT IS GOING ON?". AT THAT TIME ASSISTED BACK TO BED AND PUT TABS ALARM ON. 0400 PATIENT STATES WHEN DO I NEED TO CHECK MY BLOOD SUGAR. RE-EDUCATED PATIENT THAT NURSING STAFF IS CHECKING HIS BLOOD SUGAR AND HE DOES NOT HAVE HIS PERSONAL GLUCOMETER HERE. WILL CONTINUE TO MONITOR PATIENT FOR ALOC AND FALL RISK BEHAVIORS.
[2019-05-21 06:00] VITALS: BP 195/77
[2019-05-21 06:17] LABS: BASOPHILS % (AUTO) 0.7 % (0-1); EOSINOPHILS % (AUTO) 0.9 % (0-6); HEMATOCRIT 35.5 % (42.0-52.0); HEMOGLOBIN 12.2 g/dl (14.0-17.9); LYMPHOCYTES # (AUTO) 0.7 X10'3 (1.1-4.8); LYMPHOCYTES % (AUTO) 12.1 % (21-51); MEAN CORPUSCULAR HEMOGLOBIN 28.7 PG (27.0-31.0); MEAN CORPUSCULAR HGB CONC 34.4 g/dL (33.0-36.5); MEAN CORPUSCULAR VOLUME 83.5 FL (78-98); MEAN PLATELET VOLUME 9.2 FL (7.4-10.4); MONOCYTES # (AUTO) 0.9 X10'3 (0-0.9); NEUTROPHILS # (AUTO) 4.1 X10'3 (1.8-7.7); NEUTROPHILS % (AUTO) 71.3 % (42-75); PLATELET COUNT 138 X10'3 (140-440); RED BLOOD COUNT 4.26 X10'6 (4.70-6.10); RED CELL DISTRIBUTION WIDTH 14.8 % (11.5-14.5); WHITE BLOOD COUNT 5.7 X10'3 (4.5-11.0)
[2019-05-21 06:29] LABS: ANION GAP 9 (8-16); BLOOD UREA NITROGEN 26 MG/DL (7-18); BUN/CREATININE RATIO 18.1 (5.4-32.0); CALCIUM 8.7 MG/DL (8.5-10.1); CHLORIDE 100 MMOL/L (99-107); CREATININE 1.44 MG/DL (0.60-1.10); GLUCOSE 261 MG/DL (70-104); MAGNESIUM 1.7 MG/DL (1.5-2.4); POTASSIUM 4.7 MMOL/L (3.5-5.1); SODIUM 134 MMOL/L (135-145); TOTAL CARBON DIOXIDE 25.1 MMOL/L (24-32); eGFR 49 ML/MIN
[2019-05-21] MEDS: K and/or MAG REPLACEMENT MC SCH (07:51)
[2019-05-21] MEDS: insulin Lispro (HumaLOG) vial - multi-dose SQ SCH (09:30)
[2019-05-21] MEDS: pantoprazole 40mg Tablet.DR PO SCH (09:31)
[2019-05-21] MEDS: carVEDilol 3.125mg tablet PO SCH (09:31)
[2019-05-21] MEDS: levoTHYROXINE 112mcg tablet PO SCH (09:31)
[2019-05-21] MEDS: aspirin 81mg tab.chew PO SCH (09:32)
[2019-05-21] MEDS: gabapentin 300mg capsule PO SCH (09:32)
[2019-05-21] MEDS: atorvastatin 20mg tablet PO SCH (09:32)
[2019-05-21] MEDS: folic acid/vitamin B complex w/vitamin C 0.8mg tablet PO SCH (09:32)
[2019-05-21] MEDS: tacrolimus anhydrous 1mg capsule PO SCH (09:32)
[2019-05-21] MEDS: amLODIPine 5mg tablet PO SCH (09:32)
[2019-05-21] MEDS: CefTRIAXone/D5W-Rocephin 1gm 50 ML IV SCH (09:33)
[2019-05-21] MEDS: mycophenolate mofetil 250mg capsule PO SCH (09:33)
[2019-05-21] MEDS: normal saline 1000ml 1,000 ML IV SCH (09:44)
[2019-05-21 10:24] LABS: CHOL/HDL RATIO 2.6 (0.00-4.99); CHOLESTEROL 88 MG/DL (0-200); HDL CHOLESTEROL 34 MG/DL (35-60); LDL CHOLESTEROL 44 MG/DL (50-100); TRIGLYCERIDES 81 MG/DL (20-135)
[2019-05-21 10:58] VITALS: BP 168/64
[2019-05-21] MEDS ORDERED: LEVO500T2 PO (13:07)
== END 2019-05-21 13:30 | disposition home or self-care (01) | DRG 698 ==
LOC: ER 08:26 → ED HOLD 13:12 → EDBEDREQ 13:27 → ORTHO 4S 14:15 → OBSVTOIN 05-21 08:00
PROVIDERS: ADMIT Internal Medicine; ATTEND Family Medicine
DX: T86.19 Other complication of kidney transplant (principal); G93.41 Metabolic encephalopathy; N17.9 Acute kidney failure, unspecified; G45.9 Transient cerebral ischemic attack, unspecified; E87.1 Hypo-osmolality and hyponatremia; Z94.0 Kidney transplant status; I13.10 Hypertensive heart and chronic kidney disease without heart failure, with stage 1 through stage 4 chronic kidney disease, or unspecified chronic kidney disease; E03.9 Hypothyroidism, unspecified; E11.22 Type 2 diabetes mellitus with diabetic chronic kidney disease; E11.51 Type 2 diabetes mellitus with diabetic peripheral angiopathy without gangrene; E78.5 Hyperlipidemia, unspecified; E87.5 Hyperkalemia; E11.42 Type 2 diabetes mellitus with diabetic polyneuropathy; J20.9 Acute bronchitis, unspecified; K21.9 Gastro-esophageal reflux disease without esophagitis; N18.9 Chronic kidney disease, unspecified; Z79.4 Long term (current) use of insulin; Z88.5 Allergy status to narcotic agent
CPT/HCPCS: 36415; 36600; 70450; 70544; 70547; 70551; 71045; 80048; 80053; 80061; 82803; 82948; 83036; 83735; 84145; 84443; 84484; 85018; 85025; 85610; 85730; 87081; 93005; 94760; 96365; 96367; 96372; 97110; 97161; 97530; 99285; G0378; J0456; J0696; J1815; J7030; J7507; J7517

== ENCOUNTER 2019-05-29 07:49 | Emergency (ER) | payer MEDICARE, BC ==
[~2019-05-29] VITALS: Ht 182.9 cm; Wt 96.6 kg
[~2019-05-29 07:49] MED LIST changes: -ATOR-2 PO; +ATOR80TA PO; +CARV3.122 PO; -CARV6.253 PO; +FOLI0.8T7 PO; -FOLI1TAB34 PO; -FURO20TA4 PO; -INSU100I31 SUBCUT; -INSU100V13 SQ; +LEVO112T39 PO; -LEVO125T68 PO
[2019-05-29] MEDS ORDERED: ondansetron 4mg rapidly disintigrating tab PO ONE (08:20)
[2019-05-29] MEDS ORDERED: normal saline 1000ml 1,000 ML IV ONE (08:20)
[2019-05-29] MEDS ORDERED: meclizine 12.5mg tablet PO ONE (08:55)
[2019-05-29] MEDS ORDERED: proCHLORperazine 10 MG/2 ml inj IV ONE (08:55)
[2019-05-29 08:58] LABS: BASOPHILS # (AUTO) 0.1 X10'3 (0-0.2); BASOPHILS % (AUTO) 0.8 % (0-1); EOSINOPHILS # (AUTO) 0.2 X10'3 (0-0.9); EOSINOPHILS % (AUTO) 2.3 % (0-6); HEMATOCRIT 39.3 % (42.0-52.0); HEMOGLOBIN 13.2 g/dl (14.0-17.9); LYMPHOCYTES # (AUTO) 1.1 X10'3 (1.1-4.8); LYMPHOCYTES % (AUTO) 10.4 % (21-51); MEAN CORPUSCULAR HEMOGLOBIN 28.2 PG (27.0-31.0); MEAN CORPUSCULAR HGB CONC 33.7 g/dL (33.0-36.5); MEAN CORPUSCULAR VOLUME 83.7 FL (78-98); MEAN PLATELET VOLUME 8.9 FL (7.4-10.4); MONOCYTES # (AUTO) 0.8 X10'3 (0-0.9); MONOCYTES % (AUTO) 7.7 % (2-12); NEUTROPHILS # (AUTO) 8.2 X10'3 (1.8-7.7); NEUTROPHILS % (AUTO) 78.8 % (42-75); PLATELET COUNT 214 X10'3 (140-440); RED CELL DISTRIBUTION WIDTH 14.7 % (11.5-14.5); WHITE BLOOD COUNT 10.5 X10'3 (4.5-11.0)
[2019-05-29 09:11] LABS: ALANINE AMINOTRANSFERASE 37 U/L (12-78); ALBUMIN 3.5 G/DL (3.4-5.0); ALBUMIN/GLOBULIN RATIO 1.2 (1.1-1.5); ALKALINE PHOSPHATASE 88 IU/L (46-116); ANION GAP 4 (8-16); ASPARTATE AMINO TRANSFERASE 28 U/L (10-37); BILIRUBIN,TOTAL 0.5 MG/DL (0.1-1.0); BLOOD UREA NITROGEN 24 MG/DL (7-18); BUN/CREATININE RATIO 15.6 (5.4-32.0); CALCIUM 8.8 MG/DL (8.5-10.1); CHLORIDE 102 MMOL/L (99-107); CREATININE 1.54 MG/DL (0.60-1.10); GLUCOSE 236 MG/DL (70-104); POTASSIUM 4.7 MMOL/L (3.5-5.1); SODIUM 136 MMOL/L (135-145); TOTAL CARBON DIOXIDE 29.9 MMOL/L (24-32); TOTAL PROTEIN 6.4 G/DL (6.4-8.2); eGFR 45 ML/MIN
[2019-05-29 09:17] LABS: MAGNESIUM 1.7 MG/DL (1.5-2.4)
[2019-05-29] MEDS ORDERED: BENZ-16 PO (10:23)
[2019-05-29] MEDS ORDERED: GUAI120L55 PO (10:23)
[2019-05-29] MEDS ORDERED: ONDA8TAB6 PO (10:23)
[2019-05-29] MEDS ORDERED: MECL-111 PO (10:23)
[2019-05-29 10:46] VITALS: BP 164/93
== END 2019-05-29 10:50 | disposition home or self-care (01) ==
LOC: ER 07:50
DX: R55 Syncope and collapse (principal); R11.2 Nausea with vomiting, unspecified; R42 Dizziness and giddiness; J06.9 Acute upper respiratory infection, unspecified; E11.9 Type 2 diabetes mellitus without complications; Z98.890 Other specified postprocedural states; Z94.0 Kidney transplant status; Z88.5 Allergy status to narcotic agent; Z79.82 Long term (current) use of aspirin; Z79.899 Other long term (current) drug therapy
CPT/HCPCS: 36415; 71045; 80053; 82948; 83735; 83880; 84484; 85025; 93005; 96361; 96374; 99284; J0780; J7030; J8597

== ENCOUNTER 2019-06-17 09:38 | Outpatient (CLI) | payer MEDICARE, BC ==
[~2019-06-17 09:38] MED LIST changes: +BENZ-16 PO; +GUAI120L55 PO; +MECL-159 PO; +ONDA8TAB6 PO
[2019-06-17] MEDS ORDERED: hydrocortisone 1% cream 28gm TP ONE (10:55)
== END 2019-06-17 11:09 | disposition home or self-care (01) ==
LOC: WOUND CARE 09:38 → EDSTATUS 10:00 → WOUND CARE 11:09
PROVIDERS: ATTEND Surgery
DX: E11.622 Type 2 diabetes mellitus with other skin ulcer (principal); I70.242 Atherosclerosis of native arteries of left leg with ulceration of calf; L97.821 Non-pressure chronic ulcer of other part of left lower leg limited to breakdown of skin; I25.10 Atherosclerotic heart disease of native coronary artery without angina pectoris; I13.10 Hypertensive heart and chronic kidney disease without heart failure, with stage 1 through stage 4 chronic kidney disease, or unspecified chronic kidney disease; E11.22 Type 2 diabetes mellitus with diabetic chronic kidney disease; N18.9 Chronic kidney disease, unspecified; E11.51 Type 2 diabetes mellitus with diabetic peripheral angiopathy without gangrene; E11.42 Type 2 diabetes mellitus with diabetic polyneuropathy; E86.0 Dehydration; K21.9 Gastro-esophageal reflux disease without esophagitis; E78.5 Hyperlipidemia, unspecified; E03.9 Hypothyroidism, unspecified; Z98.890 Other specified postprocedural states; Z86.718 Personal history of other venous thrombosis and embolism; Z79.82 Long term (current) use of aspirin; Z79.4 Long term (current) use of insulin; Z79.899 Other long term (current) drug therapy; Z94.0 Kidney transplant status
CPT/HCPCS: 36416; 82948; A6223; G0463; A4663; A6446

== ENCOUNTER 2019-10-02 08:00 | Day surgery (SDC) | payer MEDICARE, BC ==
[~2019-10-02 08:00] MED LIST changes: -BENZ-16 PO
== END 2019-10-02 09:31 | disposition home or self-care (01) ==
LOC: WOUND CARE 08:00
PROVIDERS: ATTEND Nurse Practitioner
DX: E11.622 Type 2 diabetes mellitus with other skin ulcer (principal); I70.242 Atherosclerosis of native arteries of left leg with ulceration of calf; L97.821 Non-pressure chronic ulcer of other part of left lower leg limited to breakdown of skin; I25.10 Atherosclerotic heart disease of native coronary artery without angina pectoris; I13.10 Hypertensive heart and chronic kidney disease without heart failure, with stage 1 through stage 4 chronic kidney disease, or unspecified chronic kidney disease; E11.22 Type 2 diabetes mellitus with diabetic chronic kidney disease; N18.9 Chronic kidney disease, unspecified; E11.51 Type 2 diabetes mellitus with diabetic peripheral angiopathy without gangrene; E11.42 Type 2 diabetes mellitus with diabetic polyneuropathy; E86.0 Dehydration; K21.9 Gastro-esophageal reflux disease without esophagitis; E78.5 Hyperlipidemia, unspecified; E03.9 Hypothyroidism, unspecified; Z98.890 Other specified postprocedural states; Z86.718 Personal history of other venous thrombosis and embolism; Z79.82 Long term (current) use of aspirin; Z79.4 Long term (current) use of insulin; Z79.899 Other long term (current) drug therapy; Z94.0 Kidney transplant status
CPT/HCPCS: 36416; 73590; 82948; 97597

== ENCOUNTER 2019-10-04 09:20 | Day surgery (SDC) | payer MEDICARE, BC ==
[2019-10-04] MEDS ORDERED: LIDOcaine 2% 5ml jelly ONE (10:04)
== END 2019-10-04 10:30 | disposition home or self-care (01) ==
LOC: WOUND CARE 09:20
PROVIDERS: ATTEND Nurse Practitioner
DX: E11.622 Type 2 diabetes mellitus with other skin ulcer (principal); I70.242 Atherosclerosis of native arteries of left leg with ulceration of calf; L97.821 Non-pressure chronic ulcer of other part of left lower leg limited to breakdown of skin; I25.10 Atherosclerotic heart disease of native coronary artery without angina pectoris; I13.10 Hypertensive heart and chronic kidney disease without heart failure, with stage 1 through stage 4 chronic kidney disease, or unspecified chronic kidney disease; E11.22 Type 2 diabetes mellitus with diabetic chronic kidney disease; N18.9 Chronic kidney disease, unspecified; E11.51 Type 2 diabetes mellitus with diabetic peripheral angiopathy without gangrene; E11.42 Type 2 diabetes mellitus with diabetic polyneuropathy; E86.0 Dehydration; K21.9 Gastro-esophageal reflux disease without esophagitis; E78.5 Hyperlipidemia, unspecified; E03.9 Hypothyroidism, unspecified; Z98.890 Other specified postprocedural states; Z86.718 Personal history of other venous thrombosis and embolism; Z79.82 Long term (current) use of aspirin; Z79.4 Long term (current) use of insulin; Z79.899 Other long term (current) drug therapy; Z94.0 Kidney transplant status
CPT/HCPCS: 36416; 82948; 97597

== ENCOUNTER 2019-10-11 09:32 | Day surgery (SDC) | payer MEDICARE, BC | END 2019-10-11 09:54 | disposition home or self-care (01) | LOC: WOUND CARE 09:32 | PROVIDERS: ATTEND Nurse Practitioner | DX: E11.622 Type 2 diabetes mellitus with other skin ulcer (principal); I70.242 Atherosclerosis of native arteries of left leg with ulceration of calf; L97.821 Non-pressure chronic ulcer of other part of left lower leg limited to breakdown of skin; I25.10 Atherosclerotic heart disease of native coronary artery without angina pectoris; I13.10 Hypertensive heart and chronic kidney disease without heart failure, with stage 1 through stage 4 chronic kidney disease, or unspecified chronic kidney disease; E11.22 Type 2 diabetes mellitus with diabetic chronic kidney disease; N18.9 Chronic kidney disease, unspecified; E11.51 Type 2 diabetes mellitus with diabetic peripheral angiopathy without gangrene; E11.42 Type 2 diabetes mellitus with diabetic polyneuropathy; E86.0 Dehydration; K21.9 Gastro-esophageal reflux disease without esophagitis; E78.5 Hyperlipidemia, unspecified; E03.9 Hypothyroidism, unspecified; Z98.890 Other specified postprocedural states; Z86.718 Personal history of other venous thrombosis and embolism; Z79.82 Long term (current) use of aspirin; Z79.4 Long term (current) use of insulin; Z79.899 Other long term (current) drug therapy; Z94.0 Kidney transplant status | CPT/HCPCS: 36416; 82948; 97597 ==

== ENCOUNTER → 2019-10-18 | Day surgery (SDC) | payer MEDICARE, BC ==
[~2019-10-18] MED LIST changes: +LIDOcaine 2% 5ml jelly ONE
== END | disposition home or self-care (01) ==
LOC: WOUND CARE 08:10
PROVIDERS: ATTEND Nurse Practitioner
DX: E11.622 Type 2 diabetes mellitus with other skin ulcer (principal); I70.242 Atherosclerosis of native arteries of left leg with ulceration of calf; L97.821 Non-pressure chronic ulcer of other part of left lower leg limited to breakdown of skin; I25.10 Atherosclerotic heart disease of native coronary artery without angina pectoris; I13.10 Hypertensive heart and chronic kidney disease without heart failure, with stage 1 through stage 4 chronic kidney disease, or unspecified chronic kidney disease; E11.22 Type 2 diabetes mellitus with diabetic chronic kidney disease; N18.9 Chronic kidney disease, unspecified; E11.51 Type 2 diabetes mellitus with diabetic peripheral angiopathy without gangrene; E11.42 Type 2 diabetes mellitus with diabetic polyneuropathy; E86.0 Dehydration; K21.9 Gastro-esophageal reflux disease without esophagitis; E78.5 Hyperlipidemia, unspecified; E03.9 Hypothyroidism, unspecified; Z98.890 Other specified postprocedural states; Z86.718 Personal history of other venous thrombosis and embolism; Z79.82 Long term (current) use of aspirin; Z79.4 Long term (current) use of insulin; Z79.899 Other long term (current) drug therapy; Z94.0 Kidney transplant status
CPT/HCPCS: 82948; 97597

== ENCOUNTER 2019-10-25 08:00 | Day surgery (SDC) | payer MEDICARE, BC ==
[~2019-10-25 08:00] MED LIST changes: -LIDOcaine 2% 5ml jelly ONE
[2019-10-25] MEDS ORDERED: LIDOcaine 2% 5ml jelly ONE (08:27)
== END 2019-10-25 08:54 | disposition home or self-care (01) ==
LOC: WOUND CARE 08:00
PROVIDERS: ATTEND Nurse Practitioner
DX: E11.622 Type 2 diabetes mellitus with other skin ulcer (principal); I70.242 Atherosclerosis of native arteries of left leg with ulceration of calf; L97.821 Non-pressure chronic ulcer of other part of left lower leg limited to breakdown of skin; I25.10 Atherosclerotic heart disease of native coronary artery without angina pectoris; I13.10 Hypertensive heart and chronic kidney disease without heart failure, with stage 1 through stage 4 chronic kidney disease, or unspecified chronic kidney disease; E11.22 Type 2 diabetes mellitus with diabetic chronic kidney disease; N18.9 Chronic kidney disease, unspecified; E11.51 Type 2 diabetes mellitus with diabetic peripheral angiopathy without gangrene; E11.42 Type 2 diabetes mellitus with diabetic polyneuropathy; E86.0 Dehydration; K21.9 Gastro-esophageal reflux disease without esophagitis; E78.5 Hyperlipidemia, unspecified; E03.9 Hypothyroidism, unspecified; Z98.890 Other specified postprocedural states; Z86.718 Personal history of other venous thrombosis and embolism; Z79.82 Long term (current) use of aspirin; Z79.4 Long term (current) use of insulin; Z79.899 Other long term (current) drug therapy; Z94.0 Kidney transplant status
CPT/HCPCS: 36416; 82948; 97597

== ENCOUNTER 2019-11-01 08:20 | Outpatient (CLI) | payer MEDICARE, BC | END 2019-11-01 09:33 | disposition home or self-care (01) | LOC: WOUND CARE 08:20 → EDSTATUS 08:20 → WOUND CARE 09:33 | PROVIDERS: ATTEND Nurse Practitioner | DX: E11.622 Type 2 diabetes mellitus with other skin ulcer (principal); I70.248 Atherosclerosis of native arteries of left leg with ulceration of other part of lower leg; L97.821 Non-pressure chronic ulcer of other part of left lower leg limited to breakdown of skin; I25.10 Atherosclerotic heart disease of native coronary artery without angina pectoris; I13.10 Hypertensive heart and chronic kidney disease without heart failure, with stage 1 through stage 4 chronic kidney disease, or unspecified chronic kidney disease; E11.22 Type 2 diabetes mellitus with diabetic chronic kidney disease; N18.9 Chronic kidney disease, unspecified; E11.51 Type 2 diabetes mellitus with diabetic peripheral angiopathy without gangrene; E11.42 Type 2 diabetes mellitus with diabetic polyneuropathy; E86.0 Dehydration; K21.9 Gastro-esophageal reflux disease without esophagitis; E78.5 Hyperlipidemia, unspecified; E03.9 Hypothyroidism, unspecified; Z98.890 Other specified postprocedural states; Z86.718 Personal history of other venous thrombosis and embolism; Z79.82 Long term (current) use of aspirin; Z79.4 Long term (current) use of insulin; Z79.899 Other long term (current) drug therapy; Z94.0 Kidney transplant status | CPT/HCPCS: 36416; 82948; G0463 ==

== ENCOUNTER 2019-11-22 15:31 | Emergency (ER) | payer MEDICARE, BC ==
[~2019-11-22] VITALS: Ht 182.9 cm; Wt 97.3 kg
[2019-11-22] MEDS ORDERED: IBUP-1984 PO (17:04)
[2019-11-22 17:22] VITALS: BP 152/75
--- NOTE | 2019-11-22 17:23 | NUR ---
PT SEEN AND TREATED BY HOWARD WHIPPLE
== END 2019-11-22 17:15 | disposition home or self-care (01) ==
LOC: ER 15:32
DX: S22.32XA Fracture of one rib, left side, initial encounter for closed fracture (principal); R07.81 Pleurodynia; E11.9 Type 2 diabetes mellitus without complications; Z85.9 Personal history of malignant neoplasm, unspecified; Z98.890 Other specified postprocedural states; Z88.5 Allergy status to narcotic agent; Z79.82 Long term (current) use of aspirin; Z79.899 Other long term (current) drug therapy; W18.39XA Other fall on same level, initial encounter; Y93.89 Activity, other specified; Y92.89 Other specified places as the place of occurrence of the external cause; Y99.8 Other external cause status
CPT/HCPCS: 71100; 99283

== ENCOUNTER 2019-12-25 13:18 | Day surgery (SDC) | payer MEDICARE, BC ==
[2019-12-25] MEDS ORDERED: LIDOcaine 2% 5ml jelly ONE (13:57)
== END 2019-12-25 14:18 | disposition home or self-care (01) ==
LOC: WOUND CARE 13:18
PROVIDERS: ATTEND Nurse Practitioner
DX: E11.622 Type 2 diabetes mellitus with other skin ulcer (principal); I70.242 Atherosclerosis of native arteries of left leg with ulceration of calf; L97.821 Non-pressure chronic ulcer of other part of left lower leg limited to breakdown of skin; I25.10 Atherosclerotic heart disease of native coronary artery without angina pectoris; I13.10 Hypertensive heart and chronic kidney disease without heart failure, with stage 1 through stage 4 chronic kidney disease, or unspecified chronic kidney disease; E11.22 Type 2 diabetes mellitus with diabetic chronic kidney disease; N18.9 Chronic kidney disease, unspecified; E11.51 Type 2 diabetes mellitus with diabetic peripheral angiopathy without gangrene; E11.42 Type 2 diabetes mellitus with diabetic polyneuropathy; E86.0 Dehydration; K21.9 Gastro-esophageal reflux disease without esophagitis; E78.5 Hyperlipidemia, unspecified; E03.9 Hypothyroidism, unspecified; Z98.890 Other specified postprocedural states; Z86.718 Personal history of other venous thrombosis and embolism; Z79.82 Long term (current) use of aspirin; Z79.4 Long term (current) use of insulin; Z79.899 Other long term (current) drug therapy; Z94.0 Kidney transplant status
CPT/HCPCS: 87070; 87075; 87077; 87102; 87186; 97597

== ENCOUNTER 2019-12-31 09:03 | Day surgery (SDC) | payer MEDICARE, BC ==
[2019-12-31] MEDS ORDERED: LIDOcaine 2% 5ml jelly ONE (09:28)
== END 2019-12-31 09:46 | disposition home or self-care (01) ==
LOC: WOUND CARE 09:03
PROVIDERS: ATTEND Nurse Practitioner
DX: E11.622 Type 2 diabetes mellitus with other skin ulcer (principal); I70.242 Atherosclerosis of native arteries of left leg with ulceration of calf; L97.821 Non-pressure chronic ulcer of other part of left lower leg limited to breakdown of skin; I25.10 Atherosclerotic heart disease of native coronary artery without angina pectoris; I13.10 Hypertensive heart and chronic kidney disease without heart failure, with stage 1 through stage 4 chronic kidney disease, or unspecified chronic kidney disease; E11.22 Type 2 diabetes mellitus with diabetic chronic kidney disease; N18.9 Chronic kidney disease, unspecified; E11.51 Type 2 diabetes mellitus with diabetic peripheral angiopathy without gangrene; E11.42 Type 2 diabetes mellitus with diabetic polyneuropathy; E86.0 Dehydration; K21.9 Gastro-esophageal reflux disease without esophagitis; E78.5 Hyperlipidemia, unspecified; E03.9 Hypothyroidism, unspecified; Z98.890 Other specified postprocedural states; Z86.718 Personal history of other venous thrombosis and embolism; Z79.82 Long term (current) use of aspirin; Z79.4 Long term (current) use of insulin; Z79.899 Other long term (current) drug therapy; Z94.0 Kidney transplant status
CPT/HCPCS: 82948; 97597

== ENCOUNTER 2020-01-21 12:50 | Day surgery (SDC) | payer MEDICARE, BC ==
[~2020-01-21 12:50] MED LIST changes: -PANT40TA4 PO; +PANT40TA54 PO
[2020-01-21] MEDS ORDERED: LIDOcaine 2% 5ml jelly ONE (13:35)
[2020-01-27] MEDS ORDERED: LIDOcaine 2% 5ml jelly ONE (09:39)
== END 2020-01-27 10:16 | disposition home or self-care (01) ==
LOC: WOUND CARE 12:50
PROVIDERS: ATTEND Nurse Practitioner Family
DX: E11.622 Type 2 diabetes mellitus with other skin ulcer (principal); I70.238 Atherosclerosis of native arteries of right leg with ulceration of other part of lower leg; L97.821 Non-pressure chronic ulcer of other part of left lower leg limited to breakdown of skin; L97.811 Non-pressure chronic ulcer of other part of right lower leg limited to breakdown of skin; I25.10 Atherosclerotic heart disease of native coronary artery without angina pectoris; I13.10 Hypertensive heart and chronic kidney disease without heart failure, with stage 1 through stage 4 chronic kidney disease, or unspecified chronic kidney disease; E11.22 Type 2 diabetes mellitus with diabetic chronic kidney disease; N18.9 Chronic kidney disease, unspecified; E11.51 Type 2 diabetes mellitus with diabetic peripheral angiopathy without gangrene; E11.42 Type 2 diabetes mellitus with diabetic polyneuropathy; E11.65 Type 2 diabetes mellitus with hyperglycemia; E86.0 Dehydration; K21.9 Gastro-esophageal reflux disease without esophagitis; E78.5 Hyperlipidemia, unspecified; E03.9 Hypothyroidism, unspecified; Z98.890 Other specified postprocedural states; Z86.718 Personal history of other venous thrombosis and embolism; Z79.82 Long term (current) use of aspirin; Z79.4 Long term (current) use of insulin; Z79.899 Other long term (current) drug therapy; Z94.0 Kidney transplant status
CPT/HCPCS: 36416; 82948; 97597

== ENCOUNTER 2020-01-31 13:20 | Day surgery (SDC) | payer MEDICARE, BC ==
[~2020-01-31 13:20] MED LIST changes: +PANT40TA4 PO; -PANT40TA54 PO
[2020-01-31] MEDS ORDERED: LIDOcaine 1% w/epiNEPHrine 1:200,000 30ml vial ONE (14:29)
[2020-01-31] MEDS ORDERED: LIDOcaine 2% 5ml jelly ONE (14:29)
== END 2020-01-31 15:10 | disposition home or self-care (01) ==
LOC: WOUND CARE 13:20
PROVIDERS: ATTEND Nurse Practitioner
DX: E11.622 Type 2 diabetes mellitus with other skin ulcer (principal); L97.821 Non-pressure chronic ulcer of other part of left lower leg limited to breakdown of skin; L97.811 Non-pressure chronic ulcer of other part of right lower leg limited to breakdown of skin; I77.2 Rupture of artery; I70.242 Atherosclerosis of native arteries of left leg with ulceration of calf; L97.221 Non-pressure chronic ulcer of left calf limited to breakdown of skin; I25.10 Atherosclerotic heart disease of native coronary artery without angina pectoris; I13.10 Hypertensive heart and chronic kidney disease without heart failure, with stage 1 through stage 4 chronic kidney disease, or unspecified chronic kidney disease; E11.22 Type 2 diabetes mellitus with diabetic chronic kidney disease; N18.9 Chronic kidney disease, unspecified; E11.51 Type 2 diabetes mellitus with diabetic peripheral angiopathy without gangrene; E11.42 Type 2 diabetes mellitus with diabetic polyneuropathy; E11.65 Type 2 diabetes mellitus with hyperglycemia; E86.0 Dehydration; K21.9 Gastro-esophageal reflux disease without esophagitis; E78.5 Hyperlipidemia, unspecified; E03.9 Hypothyroidism, unspecified; Z98.890 Other specified postprocedural states; Z86.718 Personal history of other venous thrombosis and embolism; Z79.82 Long term (current) use of aspirin; Z79.4 Long term (current) use of insulin; Z79.899 Other long term (current) drug therapy; Z94.0 Kidney transplant status
CPT/HCPCS: 36416; 82948; 87070; 87075; 87077; 87102; 87186; 97597

== ENCOUNTER 2020-02-07 09:20 | Day surgery (SDC) | payer MEDICARE, BC ==
[~2020-02-07 09:20] MED LIST changes: -PANT40TA4 PO; +PANT40TA54 PO
[2020-02-07] MEDS ORDERED: LIDOcaine 2% 5ml jelly ONE (09:43)
== END 2020-02-07 10:15 | disposition home or self-care (01) ==
LOC: WOUND CARE 09:20
PROVIDERS: ATTEND Nurse Practitioner
DX: E11.622 Type 2 diabetes mellitus with other skin ulcer (principal); L97.821 Non-pressure chronic ulcer of other part of left lower leg limited to breakdown of skin; L97.811 Non-pressure chronic ulcer of other part of right lower leg limited to breakdown of skin; I77.2 Rupture of artery; I70.242 Atherosclerosis of native arteries of left leg with ulceration of calf; L97.221 Non-pressure chronic ulcer of left calf limited to breakdown of skin; I25.10 Atherosclerotic heart disease of native coronary artery without angina pectoris; I13.10 Hypertensive heart and chronic kidney disease without heart failure, with stage 1 through stage 4 chronic kidney disease, or unspecified chronic kidney disease; E11.22 Type 2 diabetes mellitus with diabetic chronic kidney disease; N18.9 Chronic kidney disease, unspecified; E11.51 Type 2 diabetes mellitus with diabetic peripheral angiopathy without gangrene; E11.42 Type 2 diabetes mellitus with diabetic polyneuropathy; E11.65 Type 2 diabetes mellitus with hyperglycemia; E86.0 Dehydration; K21.9 Gastro-esophageal reflux disease without esophagitis; E78.5 Hyperlipidemia, unspecified; E03.9 Hypothyroidism, unspecified; Z98.890 Other specified postprocedural states; Z86.718 Personal history of other venous thrombosis and embolism; Z79.82 Long term (current) use of aspirin; Z79.4 Long term (current) use of insulin; Z79.899 Other long term (current) drug therapy; Z94.0 Kidney transplant status
CPT/HCPCS: 36416; 82948; 97597

== ENCOUNTER → 2020-02-14 | Day surgery (SDC) | payer MEDICARE, BC ==
[~2020-02-14] MED LIST changes: +LIDOcaine 2% 5ml jelly ONE
== END | disposition home or self-care (01) ==
LOC: WOUND CARE 09:05
PROVIDERS: ATTEND Nurse Practitioner
DX: E11.622 Type 2 diabetes mellitus with other skin ulcer (principal); L97.821 Non-pressure chronic ulcer of other part of left lower leg limited to breakdown of skin; L97.811 Non-pressure chronic ulcer of other part of right lower leg limited to breakdown of skin; I77.2 Rupture of artery; I70.242 Atherosclerosis of native arteries of left leg with ulceration of calf; L97.221 Non-pressure chronic ulcer of left calf limited to breakdown of skin; I25.10 Atherosclerotic heart disease of native coronary artery without angina pectoris; I13.10 Hypertensive heart and chronic kidney disease without heart failure, with stage 1 through stage 4 chronic kidney disease, or unspecified chronic kidney disease; E11.22 Type 2 diabetes mellitus with diabetic chronic kidney disease; N18.9 Chronic kidney disease, unspecified; E11.51 Type 2 diabetes mellitus with diabetic peripheral angiopathy without gangrene; E11.42 Type 2 diabetes mellitus with diabetic polyneuropathy; E11.65 Type 2 diabetes mellitus with hyperglycemia; E86.0 Dehydration; K21.9 Gastro-esophageal reflux disease without esophagitis; E78.5 Hyperlipidemia, unspecified; E03.9 Hypothyroidism, unspecified; Z98.890 Other specified postprocedural states; Z86.718 Personal history of other venous thrombosis and embolism; Z79.82 Long term (current) use of aspirin; Z79.4 Long term (current) use of insulin; Z79.899 Other long term (current) drug therapy; Z94.0 Kidney transplant status
CPT/HCPCS: 36416; 82948; G0463

== ENCOUNTER 2020-02-21 08:23 | Day surgery (SDC) | payer MEDICARE, BC ==
[~2020-02-21 08:23] MED LIST changes: -LIDOcaine 2% 5ml jelly ONE
[2020-02-21] MEDS ORDERED: LIDOcaine 2% 5ml jelly ONE (08:39)
== END 2020-02-21 08:53 | disposition home or self-care (01) ==
LOC: WOUND CARE 08:23
PROVIDERS: ATTEND Nurse Practitioner
DX: E11.622 Type 2 diabetes mellitus with other skin ulcer (principal); L97.811 Non-pressure chronic ulcer of other part of right lower leg limited to breakdown of skin; L97.821 Non-pressure chronic ulcer of other part of left lower leg limited to breakdown of skin; I77.2 Rupture of artery; I70.242 Atherosclerosis of native arteries of left leg with ulceration of calf; L97.221 Non-pressure chronic ulcer of left calf limited to breakdown of skin; I25.10 Atherosclerotic heart disease of native coronary artery without angina pectoris; I13.10 Hypertensive heart and chronic kidney disease without heart failure, with stage 1 through stage 4 chronic kidney disease, or unspecified chronic kidney disease; E11.22 Type 2 diabetes mellitus with diabetic chronic kidney disease; N18.9 Chronic kidney disease, unspecified; E11.51 Type 2 diabetes mellitus with diabetic peripheral angiopathy without gangrene; E11.42 Type 2 diabetes mellitus with diabetic polyneuropathy; E11.65 Type 2 diabetes mellitus with hyperglycemia; E86.0 Dehydration; K21.9 Gastro-esophageal reflux disease without esophagitis; E78.5 Hyperlipidemia, unspecified; E03.9 Hypothyroidism, unspecified; Z98.890 Other specified postprocedural states; Z86.718 Personal history of other venous thrombosis and embolism; Z79.82 Long term (current) use of aspirin; Z79.4 Long term (current) use of insulin; Z79.899 Other long term (current) drug therapy; Z94.0 Kidney transplant status
CPT/HCPCS: 82948; 97597

== ENCOUNTER 2020-02-27 07:50 | Outpatient (CLI) | payer MEDICARE, BC | END 2020-02-27 08:47 | disposition home or self-care (01) | LOC: WOUND CARE 07:50 → EDSTATUS 08:00 → WOUND CARE 08:47 | PROVIDERS: ATTEND Nurse Practitioner | DX: E11.622 Type 2 diabetes mellitus with other skin ulcer (principal); I70.238 Atherosclerosis of native arteries of right leg with ulceration of other part of lower leg; L97.818 Non-pressure chronic ulcer of other part of right lower leg with other specified severity; I70.248 Atherosclerosis of native arteries of left leg with ulceration of other part of lower leg; L97.821 Non-pressure chronic ulcer of other part of left lower leg limited to breakdown of skin; I77.2 Rupture of artery; I25.10 Atherosclerotic heart disease of native coronary artery without angina pectoris; E11.22 Type 2 diabetes mellitus with diabetic chronic kidney disease; I13.10 Hypertensive heart and chronic kidney disease without heart failure, with stage 1 through stage 4 chronic kidney disease, or unspecified chronic kidney disease; N18.9 Chronic kidney disease, unspecified; E11.51 Type 2 diabetes mellitus with diabetic peripheral angiopathy without gangrene; E11.42 Type 2 diabetes mellitus with diabetic polyneuropathy; E11.65 Type 2 diabetes mellitus with hyperglycemia; E86.0 Dehydration; K21.9 Gastro-esophageal reflux disease without esophagitis; E78.5 Hyperlipidemia, unspecified; E03.9 Hypothyroidism, unspecified; Z98.890 Other specified postprocedural states; Z86.718 Personal history of other venous thrombosis and embolism; Z79.82 Long term (current) use of aspirin; Z79.4 Long term (current) use of insulin; Z79.899 Other long term (current) drug therapy; Z94.0 Kidney transplant status | CPT/HCPCS: 36416; 82948; G0463 ==

== ENCOUNTER 2020-03-18 11:33 | Outpatient (CLI) | payer MEDICARE, BC ==
[2020-03-18] MEDS ORDERED: LIDOcaine 2% 5ml jelly ONE (12:21)
== END 2020-03-18 12:30 | disposition home or self-care (01) ==
LOC: WOUND CARE 11:33
PROVIDERS: ATTEND Nurse Practitioner
DX: E11.622 Type 2 diabetes mellitus with other skin ulcer (principal); I70.248 Atherosclerosis of native arteries of left leg with ulceration of other part of lower leg; L97.821 Non-pressure chronic ulcer of other part of left lower leg limited to breakdown of skin; I77.2 Rupture of artery; I25.10 Atherosclerotic heart disease of native coronary artery without angina pectoris; E11.22 Type 2 diabetes mellitus with diabetic chronic kidney disease; I13.10 Hypertensive heart and chronic kidney disease without heart failure, with stage 1 through stage 4 chronic kidney disease, or unspecified chronic kidney disease; N18.9 Chronic kidney disease, unspecified; E11.51 Type 2 diabetes mellitus with diabetic peripheral angiopathy without gangrene; E11.42 Type 2 diabetes mellitus with diabetic polyneuropathy; E11.65 Type 2 diabetes mellitus with hyperglycemia; E86.0 Dehydration; K21.9 Gastro-esophageal reflux disease without esophagitis; E78.5 Hyperlipidemia, unspecified; E03.9 Hypothyroidism, unspecified; Z98.890 Other specified postprocedural states; Z86.718 Personal history of other venous thrombosis and embolism; Z79.82 Long term (current) use of aspirin; Z79.4 Long term (current) use of insulin; Z79.899 Other long term (current) drug therapy; Z94.0 Kidney transplant status
CPT/HCPCS: 36416; 82948; 97597

== ENCOUNTER 2020-03-25 08:17 | Outpatient (CLI) | payer MEDICARE, BC ==
[2020-03-25] MEDS ORDERED: LIDOcaine 2% 5ml jelly ONE (08:36)
== END 2020-03-25 23:59 | disposition home or self-care (01) ==
LOC: WOUND CARE 08:17
PROVIDERS: ATTEND Nurse Practitioner
DX: S80.812D Abrasion, left lower leg, subsequent encounter (principal); E11.622 Type 2 diabetes mellitus with other skin ulcer; I70.248 Atherosclerosis of native arteries of left leg with ulceration of other part of lower leg; L97.821 Non-pressure chronic ulcer of other part of left lower leg limited to breakdown of skin; I77.2 Rupture of artery; I25.10 Atherosclerotic heart disease of native coronary artery without angina pectoris; E11.22 Type 2 diabetes mellitus with diabetic chronic kidney disease; I13.10 Hypertensive heart and chronic kidney disease without heart failure, with stage 1 through stage 4 chronic kidney disease, or unspecified chronic kidney disease; N18.9 Chronic kidney disease, unspecified; E11.51 Type 2 diabetes mellitus with diabetic peripheral angiopathy without gangrene; E11.42 Type 2 diabetes mellitus with diabetic polyneuropathy; E11.65 Type 2 diabetes mellitus with hyperglycemia; E86.0 Dehydration; K21.9 Gastro-esophageal reflux disease without esophagitis; E78.5 Hyperlipidemia, unspecified; E03.9 Hypothyroidism, unspecified; Z98.890 Other specified postprocedural states; Z86.718 Personal history of other venous thrombosis and embolism; Z79.82 Long term (current) use of aspirin; Z79.4 Long term (current) use of insulin; Z79.899 Other long term (current) drug therapy; Z94.0 Kidney transplant status; X58.XXXD Exposure to other specified factors, subsequent encounter
CPT/HCPCS: 36416; 82948; 97597

== ENCOUNTER 2020-04-01 08:20 | Outpatient (CLI) | payer MEDICARE, BC ==
[2020-04-01] MEDS ORDERED: LIDOcaine 2% 5ml jelly ONE (09:19)
== END 2020-04-01 23:59 | disposition home or self-care (01) ==
LOC: WOUND CARE 08:20 → EDSTATUS 08:40 → WOUND CARE 23:59
PROVIDERS: ATTEND Nurse Practitioner
DX: S80.812D Abrasion, left lower leg, subsequent encounter (principal); E11.622 Type 2 diabetes mellitus with other skin ulcer; I70.248 Atherosclerosis of native arteries of left leg with ulceration of other part of lower leg; L97.821 Non-pressure chronic ulcer of other part of left lower leg limited to breakdown of skin; I77.2 Rupture of artery; I25.10 Atherosclerotic heart disease of native coronary artery without angina pectoris; E11.22 Type 2 diabetes mellitus with diabetic chronic kidney disease; I13.10 Hypertensive heart and chronic kidney disease without heart failure, with stage 1 through stage 4 chronic kidney disease, or unspecified chronic kidney disease; N18.9 Chronic kidney disease, unspecified; E11.51 Type 2 diabetes mellitus with diabetic peripheral angiopathy without gangrene; E11.42 Type 2 diabetes mellitus with diabetic polyneuropathy; E11.65 Type 2 diabetes mellitus with hyperglycemia; E86.0 Dehydration; K21.9 Gastro-esophageal reflux disease without esophagitis; E78.5 Hyperlipidemia, unspecified; E03.9 Hypothyroidism, unspecified; Z98.890 Other specified postprocedural states; Z86.718 Personal history of other venous thrombosis and embolism; Z79.82 Long term (current) use of aspirin; Z79.4 Long term (current) use of insulin; Z79.899 Other long term (current) drug therapy; Z94.0 Kidney transplant status; Z98.49 Cataract extraction status, unspecified eye; X58.XXXD Exposure to other specified factors, subsequent encounter
CPT/HCPCS: G0463

== ENCOUNTER 2020-05-27 11:24 | Outpatient (CLI) | payer MEDICARE, BC | END 2020-05-27 23:59 | disposition home or self-care (01) | LOC: WOUND CARE 11:24 | PROVIDERS: ATTEND Nurse Practitioner | DX: S80.811D Abrasion, right lower leg, subsequent encounter (principal); E11.622 Type 2 diabetes mellitus with other skin ulcer; I70.248 Atherosclerosis of native arteries of left leg with ulceration of other part of lower leg; L97.821 Non-pressure chronic ulcer of other part of left lower leg limited to breakdown of skin; I77.2 Rupture of artery; I25.10 Atherosclerotic heart disease of native coronary artery without angina pectoris; E11.22 Type 2 diabetes mellitus with diabetic chronic kidney disease; I13.10 Hypertensive heart and chronic kidney disease without heart failure, with stage 1 through stage 4 chronic kidney disease, or unspecified chronic kidney disease; N18.9 Chronic kidney disease, unspecified; E11.51 Type 2 diabetes mellitus with diabetic peripheral angiopathy without gangrene; E11.42 Type 2 diabetes mellitus with diabetic polyneuropathy; E11.65 Type 2 diabetes mellitus with hyperglycemia; E86.0 Dehydration; K21.9 Gastro-esophageal reflux disease without esophagitis; E78.5 Hyperlipidemia, unspecified; E03.9 Hypothyroidism, unspecified; Z98.890 Other specified postprocedural states; Z86.718 Personal history of other venous thrombosis and embolism; Z79.82 Long term (current) use of aspirin; Z79.4 Long term (current) use of insulin; Z79.899 Other long term (current) drug therapy; Z94.0 Kidney transplant status; Z98.49 Cataract extraction status, unspecified eye; X58.XXXD Exposure to other specified factors, subsequent encounter | CPT/HCPCS: G0463 ==

== ENCOUNTER 2020-06-01 09:50 | Outpatient (CLI) | payer MEDICARE, BC ==
[2020-06-01] MEDS ORDERED: LIDOcaine 2% 5ml jelly ONE (10:14)
== END 2020-06-01 23:59 | disposition home or self-care (01) ==
LOC: WOUND CARE 09:50
PROVIDERS: ATTEND Nurse Practitioner Family
DX: S80.811D Abrasion, right lower leg, subsequent encounter (principal); E11.622 Type 2 diabetes mellitus with other skin ulcer; I70.248 Atherosclerosis of native arteries of left leg with ulceration of other part of lower leg; L97.821 Non-pressure chronic ulcer of other part of left lower leg limited to breakdown of skin; I77.2 Rupture of artery; I25.10 Atherosclerotic heart disease of native coronary artery without angina pectoris; E11.22 Type 2 diabetes mellitus with diabetic chronic kidney disease; I13.10 Hypertensive heart and chronic kidney disease without heart failure, with stage 1 through stage 4 chronic kidney disease, or unspecified chronic kidney disease; N18.9 Chronic kidney disease, unspecified; E11.51 Type 2 diabetes mellitus with diabetic peripheral angiopathy without gangrene; E11.42 Type 2 diabetes mellitus with diabetic polyneuropathy; E11.65 Type 2 diabetes mellitus with hyperglycemia; E86.0 Dehydration; K21.9 Gastro-esophageal reflux disease without esophagitis; E78.5 Hyperlipidemia, unspecified; E03.9 Hypothyroidism, unspecified; Z98.890 Other specified postprocedural states; Z86.718 Personal history of other venous thrombosis and embolism; Z79.82 Long term (current) use of aspirin; Z79.4 Long term (current) use of insulin; Z79.899 Other long term (current) drug therapy; Z94.0 Kidney transplant status; Z98.49 Cataract extraction status, unspecified eye; X58.XXXD Exposure to other specified factors, subsequent encounter
CPT/HCPCS: 97597

== ENCOUNTER 2020-06-08 10:50 | Outpatient (CLI) | payer MEDICARE, BC | END 2020-06-08 23:59 | disposition home or self-care (01) | LOC: WOUND CARE 10:50 | PROVIDERS: ATTEND Nurse Practitioner Family | DX: S80.811D Abrasion, right lower leg, subsequent encounter (principal); E11.622 Type 2 diabetes mellitus with other skin ulcer; I70.248 Atherosclerosis of native arteries of left leg with ulceration of other part of lower leg; L97.821 Non-pressure chronic ulcer of other part of left lower leg limited to breakdown of skin; I77.2 Rupture of artery; I25.10 Atherosclerotic heart disease of native coronary artery without angina pectoris; E11.22 Type 2 diabetes mellitus with diabetic chronic kidney disease; I13.10 Hypertensive heart and chronic kidney disease without heart failure, with stage 1 through stage 4 chronic kidney disease, or unspecified chronic kidney disease; N18.9 Chronic kidney disease, unspecified; E11.51 Type 2 diabetes mellitus with diabetic peripheral angiopathy without gangrene; E11.42 Type 2 diabetes mellitus with diabetic polyneuropathy; E11.65 Type 2 diabetes mellitus with hyperglycemia; E86.0 Dehydration; K21.9 Gastro-esophageal reflux disease without esophagitis; E78.5 Hyperlipidemia, unspecified; E03.9 Hypothyroidism, unspecified; Z98.890 Other specified postprocedural states; Z86.718 Personal history of other venous thrombosis and embolism; Z79.82 Long term (current) use of aspirin; Z79.4 Long term (current) use of insulin; Z79.899 Other long term (current) drug therapy; Z94.0 Kidney transplant status; Z98.49 Cataract extraction status, unspecified eye; X58.XXXD Exposure to other specified factors, subsequent encounter | CPT/HCPCS: G0463 ==

== ENCOUNTER 2020-10-13 10:56 | Emergency (ER) | payer MEDICARE, BC ==
[~2020-10-13] VITALS: Ht 182.9 cm; Wt 97.5 kg
[2020-10-13 11:46] LABS: BASOPHILS % (AUTO) 0.7 % (0-1); EOSINOPHILS % (AUTO) 0.1 % (0-6); HEMATOCRIT 42.2 % (42.0-52.0); HEMOGLOBIN 13.6 g/dl (14.0-17.9); LYMPHOCYTES # (AUTO) 0.4 X10'3 (1.1-4.8); LYMPHOCYTES % (AUTO) 12.5 % (21-51); MEAN CORPUSCULAR HEMOGLOBIN 28.4 PG (27.0-31.0); MEAN CORPUSCULAR HGB CONC 32.3 g/dL (33.0-36.5); MEAN CORPUSCULAR VOLUME 88.2 FL (78-98); MEAN PLATELET VOLUME 9.6 FL (7.4-10.4); MONOCYTES # (AUTO) 0.8 X10'3 (0-0.9); MONOCYTES % (AUTO) 23.2 % (2-12); NEUTROPHILS # (AUTO) 2.1 X10'3 (1.8-7.7); NEUTROPHILS % (AUTO) 63.5 % (42-75); PLATELET COUNT 135 X10'3 (140-440); RED BLOOD COUNT 4.78 X10'6 (4.70-6.10); RED CELL DISTRIBUTION WIDTH 14.9 % (11.5-14.5); WHITE BLOOD COUNT 3.3 X10'3 (4.5-11.0)
[2020-10-13 12:04] LABS: ALANINE AMINOTRANSFERASE 37 U/L (12-78); ALBUMIN 3.6 G/DL (3.4-5.0); ALBUMIN/GLOBULIN RATIO 1.2 (1.1-1.5); ALKALINE PHOSPHATASE 100 IU/L (46-116); ANION GAP 10 (8-16); ASPARTATE AMINO TRANSFERASE 40 U/L (10-37); BLOOD UREA NITROGEN 23 MG/DL (7-18); BUN/CREATININE RATIO 13.9 (5.4-32.0); CALCIUM 8.8 MG/DL (8.5-10.1); CHLORIDE 100 MMOL/L (99-107); CREATININE 1.66 MG/DL (0.60-1.10); GLUCOSE 312 MG/DL (70-104); LIPASE < 50 U/L (73-393); POTASSIUM 5.3 MMOL/L (3.5-5.1); SODIUM 135 MMOL/L (135-145); TOTAL CARBON DIOXIDE 25.4 MMOL/L (24-32); TOTAL PROTEIN 6.7 G/DL (6.4-8.2); TROPONIN I 0.05 NG/ML (0.0-0.05); eGFR 41 ML/MIN
[2020-10-13 12:06] LABS: TOTAL CELLS COUNTED 100
[2020-10-13 12:07] LABS: LARGE PLATELETS FEW; PLATELET ESTIMATE DECREASED
[2020-10-13] MEDS ORDERED: normal saline 1000ML IV soln IVB ONE (12:15)
[2020-10-13 12:20] LABS: BILIRUBIN,TOTAL 0.8 MG/DL (0.1-1.0)
[2020-10-13 14:07] LABS: CLARITY,URINE CLEAR (Clear); COLOR,URINE YELLOW (Yellow); GLUCOSE, URINE >=1000 mg/dl (Neg); KETONES,URINE TRACE mg/dl (Neg); LEUKOCYTE ESTERASE ,URINE NEGATIVE (Neg); NITRITES, URINE NEGATIVE (Neg); OCCULT BLOOD,URINE TRACE-INTACT (Neg); PROTEIN,URINE 30 mg/dl (Neg); UROBILINOGEN,URINE 0.2 E.U/dL (0.2-1.0)
[2020-10-13 14:10] LABS: UA COLLECTION TYPE CLN CATCH MIDSTREAM
[2020-10-13 14:13] LABS: BACTERIA,URINE NONE SEEN /HPF (Neg); RBC,URINE 0-2 /HPF (0-2); SQUAMOUS EPITHELIAL CELL,UR FEW /LPF (FEW); WBC,URINE 0-4 /HPF (0-4)
[2020-10-13 14:14] LABS: HYALINE CASTS 0-3 /LPF (NEGATIVE); MUCUS STRANDS NONE SEEN /LPF (Neg)
--- NOTE | 2020-10-13 14:28 | NUR ---
Pt refusing COVID swab at this time.
[2020-10-13 14:52] VITALS: BP 184/82
== END 2020-10-13 14:53 | disposition home or self-care (01) ==
LOC: ER 10:57
DX: R50.9 Fever, unspecified (principal); R42 Dizziness and giddiness; R11.2 Nausea with vomiting, unspecified; E11.9 Type 2 diabetes mellitus without complications; Z85.9 Personal history of malignant neoplasm, unspecified; Z98.890 Other specified postprocedural states; Z88.5 Allergy status to narcotic agent; Z79.82 Long term (current) use of aspirin; Z79.899 Other long term (current) drug therapy
CPT/HCPCS: 36415; 71045; 80053; 81001; 82948; 83605; 83690; 84145; 84484; 85007; 85025; 87040; 93005; 99285; J7030

== ENCOUNTER 2022-06-14 13:32 | Emergency (ER) | payer MEDICARE, BC ==
[~2022-06-14] VITALS: Ht 182.9 cm; Wt 96.4 kg
[~2022-06-14 13:32] MED LIST changes: -AMLO5TAB10 PO; +AZIT500T9 PO; +BENZ-16 PO; +FLUT16SP NS; -GUAI120L55 PO; -LEVO112T39 PO; +LEVO125T68 PO; -MECL-159 PO; +MIDO5TAB4 PO; +NOVLG SQ; -ONDA8TAB6 PO
--- NOTE | 2022-06-14 15:55 | NUR ---
PT IS REQUESTING SOMETHING TO EAT, BLOOD SUGARS ARE FLUXUATING AND HE IS A BRITTLE DIABETIC. PT GIVEN OJ, SALTINE CRACKERS AND SOME CHEDAR CHEESE.
[2022-06-14] MEDS ORDERED: ondansetron 4mg rapidly disintigrating tab PO ONE (16:05)
[2022-06-14 16:53] LABS: BASOPHILS % (AUTO) 0.5 % (0-1); EOSINOPHILS # (AUTO) 0.1 X10'3 (0-0.9); EOSINOPHILS % (AUTO) 1.6 % (0-6); HEMATOCRIT 43.4 % (42.0-52.0); LYMPHOCYTES # (AUTO) 0.4 X10'3 (1.1-4.8); LYMPHOCYTES % (AUTO) 5.8 % (21-51); MEAN CORPUSCULAR HEMOGLOBIN 27.5 PG (27.0-31.0); MEAN CORPUSCULAR HGB CONC 32.1 g/dL (33.0-36.5); MEAN CORPUSCULAR VOLUME 85.5 FL (78-98); MEAN PLATELET VOLUME 9.3 FL (7.4-10.4); MONOCYTES # (AUTO) 0.9 X10'3 (0-0.9); MONOCYTES % (AUTO) 12.4 % (2-12); NEUTROPHILS # (AUTO) 5.8 X10'3 (1.8-7.7); NEUTROPHILS % (AUTO) 79.7 % (42-75); PLATELET COUNT 155 X10'3 (140-440); RED BLOOD COUNT 5.08 X10'6 (4.70-6.10); RED CELL DISTRIBUTION WIDTH 14.6 % (11.5-14.5); WHITE BLOOD COUNT 7.3 X10'3 (4.5-11.0)
[2022-06-14 17:10] LABS: ALANINE AMINOTRANSFERASE 21 U/L (12-78); ALBUMIN/GLOBULIN RATIO 1.2 (1.1-1.5); ALKALINE PHOSPHATASE 110 IU/L (46-116); ANION GAP 7 (8-16); ASPARTATE AMINO TRANSFERASE 25 U/L (10-37); BILIRUBIN,TOTAL 0.6 MG/DL (0.1-1.0); BLOOD UREA NITROGEN 25 MG/DL (7-18); BUN/CREATININE RATIO 13.3 (5.4-32.0); CALCIUM 8.9 MG/DL (8.5-10.1); CHLORIDE 102 MMOL/L (99-107); CREATININE 1.88 MG/DL (0.60-1.10); GLUCOSE 119 MG/DL (70-104); POTASSIUM 5.1 MMOL/L (3.5-5.1); SODIUM 136 MMOL/L (135-145); TOTAL CARBON DIOXIDE 27.2 MMOL/L (24-32); TOTAL PROTEIN 7.3 G/DL (6.4-8.2); eGFR 36 ML/MIN
[2022-06-14] MEDS ORDERED: normal saline 1000ML IV soln IVB ONE (17:20)
[2022-06-14] MEDS ORDERED: DEXAMETHASONE 6 MG TABLET PO STA (17:22)
[2022-06-14] MEDS ORDERED: DEXA6TAB PO (18:49)
[2022-06-14] MEDS ORDERED: BUDE180A INH (18:49)
[2022-06-14 19:07] VITALS: BP 190/83
== END 2022-06-14 19:11 | disposition home or self-care (01) ==
LOC: ER 13:32
DX: S00.03XA Contusion of scalp, initial encounter (principal); Z20.822 Contact with and (suspected) exposure to COVID-19; E13.22 Other specified diabetes mellitus with diabetic chronic kidney disease; I12.9 Hypertensive chronic kidney disease with stage 1 through stage 4 chronic kidney disease, or unspecified chronic kidney disease; N18.9 Chronic kidney disease, unspecified; Z94.0 Kidney transplant status; Z88.5 Allergy status to narcotic agent; Z79.899 Other long term (current) drug therapy; Z79.82 Long term (current) use of aspirin; Z79.1 Long term (current) use of non-steroidal anti-inflammatories (NSAID); Z79.84 Long term (current) use of oral hypoglycemic drugs; W18.39XA Other fall on same level, initial encounter; Y93.E1 Activity, personal bathing and showering; Y92.091 Bathroom in other non-institutional residence as the place of occurrence of the external cause; Y99.8 Other external cause status
CPT/HCPCS: 70450; 71045; 80053; 82948; 85025; 87502; 87503; 87635; 93005; 96360; 96361; 99285; C9803; J7030; J8540

== ENCOUNTER 2023-06-22 14:07 | Emergency (ER) | payer MEDICARE, BC ==
[~2023-06-22] VITALS: Ht 182.9 cm; Wt 93.4 kg
[~2023-06-22 14:07] MED LIST changes: +BUDE180A INH; +DEXA6TAB PO
[2023-06-22] MEDS ORDERED: ipratropium/albuterol 3ml nebule NEB STA (16:34)
[2023-06-22] MEDS ORDERED: AZIT250T82 PO (16:42)
[2023-06-22] MEDS ORDERED: PROM118S5 PO (16:42)
[2023-06-22 16:52] VITALS: PULSE 64; RESP 16; O2SAT 98
[2023-06-22 17:02] VITALS: PULSE 66; RESP 14; O2SAT 99
[2023-06-22 17:07] VITALS: BP 140/79; PULSE 70; RESP 17; TEMP 98.2; O2SAT 98
== END 2023-06-22 17:12 | disposition home or self-care (01) ==
LOC: ER 14:07
DX: J20.9 Acute bronchitis, unspecified (principal); R05.9 Cough, unspecified; I10 Essential (primary) hypertension; E11.9 Type 2 diabetes mellitus without complications
CPT/HCPCS: 71045; 82948; 94640; 94760; 99283

== ENCOUNTER 2023-07-07 10:49 | Emergency (ER) | payer MEDICARE, BC ==
[~2023-07-07] VITALS: Ht 182.9 cm; Wt 93.8 kg
[2023-07-07 10:50] VITALS: BP 122/36; PULSE 67; TEMP 98.2; O2SAT 96
[2023-07-07 11:16] VITALS: RESP 18
[2023-07-07 11:19] LABS: BILIRUBIN,URINE NEGATIVE (Neg); CLARITY,URINE SLIGHTLY CLOUDY (Clear); COLOR,URINE STRAW (Yellow); GLUCOSE, URINE 500 mg/dl (Neg); KETONES,URINE NEGATIVE (Neg); LEUKOCYTE ESTERASE ,URINE TRACE (Neg); NITRITES, URINE NEGATIVE (Neg); OCCULT BLOOD,URINE TRACE-INTACT (Neg); PH,URINE 5.5 (4.8-8.0); PROTEIN,URINE NEGATIVE (Neg); UROBILINOGEN,URINE 0.2 E.U/dL (0.2-1.0)
[2023-07-07 11:29] LABS: UA COLLECTION TYPE CLN CATCH MIDSTREAM
[2023-07-07] MEDS ORDERED: DOXY100C77 PO (11:31)
[2023-07-07 11:36] LABS: BACTERIA,URINE FEW /HPF (Neg); MUCUS STRANDS NONE SEEN /LPF (Neg); RBC,URINE 0-2 /HPF (0-2); SQUAMOUS EPITHELIAL CELL,UR FEW /LPF (FEW); WBC CLUMPS,URINE FEW /HPF (NEGATIVE)
== END 2023-07-07 11:59 | disposition home or self-care (01) ==
LOC: ER 10:50
DX: N39.0 Urinary tract infection, site not specified (principal); I10 Essential (primary) hypertension; E11.9 Type 2 diabetes mellitus without complications; Z88.5 Allergy status to narcotic agent
CPT/HCPCS: 81001; 82948; 87088; 99283

== ENCOUNTER 2023-12-11 15:26 | Emergency (ER) | payer BC, MEDICARE ==
[~2023-12-11] VITALS: Ht 182.9 cm; Wt 99.7 kg
[2023-12-11 15:33] VITALS: BP 179/72; PULSE 78; TEMP 98.5; O2SAT 96
[2023-12-11 16:11] VITALS: RESP 16
[2023-12-11] MEDS ORDERED: CEPH-585 PO (16:40)
[2023-12-11] MEDS ORDERED: SULF1TAB49 PO (16:40)
[2023-12-11] MEDS: CefTRIAXone 1000mg IM Kit (w/lidocaine diluent) IM ONE (17:00)
== END 2023-12-11 17:02 | disposition home or self-care (01) ==
LOC: ER 15:27
DX: L97.329 Non-pressure chronic ulcer of left ankle with unspecified severity (principal); L03.116 Cellulitis of left lower limb; E11.9 Type 2 diabetes mellitus without complications; I10 Essential (primary) hypertension; Z88.5 Allergy status to narcotic agent
CPT/HCPCS: 96372; 99283; J0696; A6258

== ENCOUNTER 2024-07-05 21:47 | Inpatient (IN) | payer BC ==
[~2024-07-05] VITALS: Ht 185.4 cm; Wt 97.0 kg
[~2024-07-05 21:47] MED LIST changes: +AMLO10TA13 PO; +ATOR-429 PO; -ATOR80TA PO; -AZIT500T9 PO; -BENZ-16 PO; -BUDE180A INH; -CARV3.122 PO; +CARV6.253 PO; +CHOL10006 PO; -DEXA6TAB PO; -FLUT16SP NS; -FOLI0.8T7 PO; +FURO20TA4 PO; +INSU100I29 SQ; +LEVO250T74 PO; -MIDO5TAB4 PO; +SODI10PO PO
[2024-07-05] MEDS: dextrose 50%-water 50ml dispensing syringe IV ONE ×3 (22:22→22:45)
[2024-07-05 22:35] LABS: BASOPHILS % (AUTO) 0.6 % (0-1); EOSINOPHILS # (AUTO) 0.1 X10'3 (0-0.9); EOSINOPHILS % (AUTO) 1.5 % (0-6); HEMATOCRIT 39.8 % (42.0-52.0); HEMOGLOBIN 13.1 g/dl (14.0-17.9); LYMPHOCYTES # (AUTO) 0.4 X10'3 (1.1-4.8); LYMPHOCYTES % (AUTO) 5.7 % (21-51); MEAN CORPUSCULAR HEMOGLOBIN 28.3 PG (27.0-31.0); MEAN CORPUSCULAR HGB CONC 32.8 g/dL (33.0-36.5); MEAN CORPUSCULAR VOLUME 86.2 FL (78-98); MEAN PLATELET VOLUME 9.6 FL (7.4-10.4); MONOCYTES # (AUTO) 1.1 X10'3 (0-0.9); MONOCYTES % (AUTO) 15.6 % (2-12); NEUTROPHILS # (AUTO) 5.3 X10'3 (1.8-7.7); NEUTROPHILS % (AUTO) 76.6 % (42-75); PLATELET COUNT 173 X10'3 (140-440); RED BLOOD COUNT 4.61 X10'6 (4.70-6.10); RED CELL DISTRIBUTION WIDTH 15.1 % (11.5-14.5); WHITE BLOOD COUNT 6.9 X10'3 (4.5-11.0)
[2024-07-05] MEDS: dexamethasone sod phosphate 10mg/ml inj IV STA (22:41)
[2024-07-05 22:51] LABS: ALANINE AMINOTRANSFERASE 22 U/L (12-78); ALBUMIN 3.9 G/DL (3.4-5.0); ALBUMIN/GLOBULIN RATIO 1.2 (1.1-1.5); ALKALINE PHOSPHATASE 94 IU/L (46-116); ANION GAP 6 (8-16); ASPARTATE AMINO TRANSFERASE 21 U/L (10-37); BILIRUBIN,TOTAL 0.7 MG/DL (0.1-1.0); BLOOD UREA NITROGEN 36 MG/DL (7-18); BUN/CREATININE RATIO 14.8 (10.0-20.0); CALCIUM 8.8 MG/DL (8.5-10.1); CHLORIDE 101 MMOL/L (99-107); CREATININE 2.44 MG/DL (0.60-1.10); GLUCOSE 129 MG/DL (70-104); POTASSIUM 3.9 MMOL/L (3.5-5.1); SODIUM 137 MMOL/L (135-145); TOTAL CARBON DIOXIDE 30.5 MMOL/L (24-32); TOTAL PROTEIN 7.2 G/DL (6.4-8.2); eCRCL 31 ML/MIN; eGFR 26 ML/MIN
[2024-07-05 22:56] LABS: ACANTHOCYTES 1+; PLATELET ESTIMATE NORMAL; TOTAL CELLS COUNTED 100
[2024-07-05 22:59] LABS: PRO BRAIN NATRIURETIC PEPTIDE 3198 PG/ML (0-125)
[2024-07-05] MEDS: normal saline 1000ML IV soln IVB ONE (23:17)
[2024-07-06 02:40] LABS: BILIRUBIN,URINE NEGATIVE (Neg); CLARITY,URINE CLEAR (Clear); COLOR,URINE YELLOW (Yellow); GLUCOSE, URINE 100 mg/dl (Neg); KETONES,URINE NEGATIVE (Neg); LEUKOCYTE ESTERASE ,URINE NEGATIVE (Neg); NITRITES, URINE NEGATIVE (Neg); OCCULT BLOOD,URINE NEGATIVE (Neg); PROTEIN,URINE TRACE mg/dl (Neg); UROBILINOGEN,URINE 0.2 E.U/dL (0.2-1.0)
[2024-07-06] MEDS ORDERED: ondansetron/PF 4mg/2ml inj IV PRN (02:50)
[2024-07-06] MEDS ORDERED: magnesium sulf-water 2g/50mL 50 ML IV PRN (02:50)
[2024-07-06] MEDS ORDERED: magnesium hydroxide 30ml (MOM) UD suspension PO PRN (02:50)
[2024-07-06] MEDS: normal saline 1000ml 1,000 ML IV SCH (02:50)
[2024-07-06] MEDS ORDERED: magnesium Cl slow-release 64mg tablet PO PRN (02:50)
[2024-07-06] MEDS ORDERED: potassium Cl 20 mEq SR tablet PO PRN ×2 (02:50)
[2024-07-06] MEDS ORDERED: acetaminophen 325mg tablet PO PRN (02:50)
[2024-07-06] MEDS ORDERED: potassium Cl 40MEQ/1/2NS 520ml 520 ML IV PRN (02:50)
[2024-07-06] MEDS ORDERED: magnesium sulf-water 4G/100mL 100 ML IV PRN (02:50)
[2024-07-06] MEDS ORDERED: mag hydrox/Alum hydrox/simeth 30ml oral suspension PO PRN (02:50)
[2024-07-06 02:58] LABS: UA COLLECTION TYPE VOIDED
[2024-07-06 02:59] LABS: BACTERIA,URINE NONE SEEN /HPF (Neg); RBC,URINE NONE SEEN /HPF (0-2); SQUAMOUS EPITHELIAL CELL,UR NONE SEEN /LPF (FEW); WBC,URINE NONE SEEN /HPF (0-4)
[2024-07-06] MEDS: dextrose 5%-normal saline 1,000 ML IV SCH (03:40)
[2024-07-06 04:08] LABS: HEMOGLOBIN A1C 8.8 % (4.5-6.2)
[2024-07-06 04:16] LABS: ETHANOL < 10 MG/DL (<10); MAGNESIUM 2.4 MG/DL (1.5-2.4); PHOSPHORUS 2.9 MG/DL (2.3-4.5); THYROID STIMULATING HORMONE 3.94 ulU/ml (0.34-4.50)
[2024-07-06] MEDS: normal saline 1000ML IV soln IVB ONE (05:30)
[2024-07-06] MEDS: CefTRIAXone/D5W-Rocephin 1gm 50 ML IV ONE (05:30)
[2024-07-06] MEDS: K and/or MAG REPLACEMENT MC SCH (08:00)
[2024-07-06] MEDS: tacrolimus anhydrous 1mg capsule PO SCH (08:03)
[2024-07-06] MEDS: levoTHYROXINE 125mcg tablet PO SCH (08:04)
[2024-07-06] MEDS: aspirin 81mg tab.chew PO SCH (08:04)
[2024-07-06] MEDS: mycophenolate mofetil 250mg capsule PO SCH (08:04)
[2024-07-06] MEDS: cholecalciferol (vitamin D3) 1,000 unit (25mcg) tablet PO SCH (08:05)
[2024-07-06] MEDS: heparin, porcine 5000 units/ml vial SQ SCH (08:05)
[2024-07-06] MEDS: atorvastatin 20mg tablet PO SCH (08:06)
[2024-07-06] MEDS: amLODIPine 5mg tablet PO SCH (08:06)
[2024-07-06] MEDS: pantoprazole 40mg Tablet.DR PO SCH (08:06)
[2024-07-06] MEDS: carvedilol 6.25mg tablet PO SCH (08:06)
[2024-07-06 09:54] LABS: BASOPHILS % (AUTO) 0.3 % (0-1); EOSINOPHILS % (AUTO) 0 % (0-6); HEMATOCRIT 38.6 % (42.0-52.0); HEMOGLOBIN 12.6 g/dl (14.0-17.9); LYMPHOCYTES # (AUTO) 0.2 X10'3 (1.1-4.8); LYMPHOCYTES % (AUTO) 4.9 % (21-51); MEAN CORPUSCULAR HEMOGLOBIN 28.3 PG (27.0-31.0); MEAN CORPUSCULAR HGB CONC 32.7 g/dL (33.0-36.5); MEAN CORPUSCULAR VOLUME 86.5 FL (78-98); MEAN PLATELET VOLUME 9.7 FL (7.4-10.4); MONOCYTES # (AUTO) 0.1 X10'3 (0-0.9); NEUTROPHILS # (AUTO) 4.5 X10'3 (1.8-7.7); NEUTROPHILS % (AUTO) 91.8 % (42-75); PLATELET COUNT 171 X10'3 (140-440); RED BLOOD COUNT 4.46 X10'6 (4.70-6.10); RED CELL DISTRIBUTION WIDTH 15.3 % (11.5-14.5); WHITE BLOOD COUNT 4.9 X10'3 (4.5-11.0)
[2024-07-06 10:14] LABS: ALANINE AMINOTRANSFERASE 21 U/L (12-78); ALBUMIN 3.3 G/DL (3.4-5.0); ALBUMIN/GLOBULIN RATIO 0.9 (1.1-1.5); ALKALINE PHOSPHATASE 86 IU/L (46-116); ANION GAP 9 (8-16); ASPARTATE AMINO TRANSFERASE 17 U/L (10-37); BILIRUBIN,TOTAL 0.6 MG/DL (0.1-1.0); BLOOD UREA NITROGEN 34 MG/DL (7-18); BUN/CREATININE RATIO 15.2 (10.0-20.0); CALCIUM 8.5 MG/DL (8.5-10.1); CHLORIDE 102 MMOL/L (99-107); CREATININE 2.24 MG/DL (0.60-1.10); GLUCOSE 296 MG/DL (70-104); POTASSIUM 5.1 MMOL/L (3.5-5.1); SODIUM 137 MMOL/L (135-145); TOTAL PROTEIN 6.8 G/DL (6.4-8.2); eCRCL 34 ML/MIN; eGFR 29 ML/MIN
[2024-07-06] MEDS: hydrALAZINE 20mg/ml inj. IV PRN (12:53)
[2024-07-06 13:12] LABS: URINE AMPHETAMINE SCREEN NEGATIVE (Neg); URINE BARBITUATE SCREEN NEGATIVE (Neg); URINE BENZODIAZEPINES SCREEN NEGATIVE (Neg); URINE CANNABINOID SCREEN NEGATIVE (Neg); URINE COCAINE SCREEN NEGATIVE (Neg); URINE METHADONE SCREEN NEGATIVE (Neg); URINE OPIATE SCREEN NEGATIVE (Neg); URINE PHENCYCLIDINE SCREEN NEGATIVE (Neg)
[2024-07-06] MEDS ORDERED: glucagon, human recombinant 1mg kit SUBCUT PRN (14:35)
[2024-07-06] MEDS ORDERED: DEXTROSE 15 GM of carb/4 tabs (each vial/BOTTLE has 4 tablets) PO PRN ×2 (14:35)
[2024-07-06] MEDS ORDERED: dextrose 50%-water 50ml dispensing syringe IV PRN ×2 (14:35)
[2024-07-06] MEDS: INSULIN LISPRO 100 UNIT/ML INSULN.PEN MULTI-DOSE SQ ONE ×3 (15:09→17:37)
[2024-07-06] MEDS: INSULIN LISPRO 100 UNIT/ML INSULN.PEN MULTI-DOSE SQ SCH ×2 (17:00→19:18)
[2024-07-06] MEDS: amLODIPine 5mg tablet PO ONE (17:51)
[2024-07-06] MEDS: gabapentin 300mg capsule PO SCH (20:16)
[2024-07-06] MEDS: insulin glargine (Lantus) pen - multi-dose SQ SCH (21:37)
[2024-07-07] MEDS: haloperidol lactate 5mg/ml inj IM ONE (00:48)
[2024-07-07] MEDS: diphenhydrAMINE 50 mg/ml inj IM ONE (00:49)
[2024-07-07] MEDS: LORazepam 2 mg/ml vial IV ONE (01:48)
[2024-07-07 06:11] LABS: BASOPHILS % (AUTO) 0.3 % (0-1); EOSINOPHILS % (AUTO) 0.1 % (0-6); HEMOGLOBIN 12.7 g/dl (14.0-17.9); LYMPHOCYTES # (AUTO) 0.7 X10'3 (1.1-4.8); LYMPHOCYTES % (AUTO) 11.3 % (21-51); MEAN CORPUSCULAR HEMOGLOBIN 28.2 PG (27.0-31.0); MEAN CORPUSCULAR HGB CONC 32.5 g/dL (33.0-36.5); MEAN CORPUSCULAR VOLUME 86.7 FL (78-98); MONOCYTES # (AUTO) 1.3 X10'3 (0-0.9); MONOCYTES % (AUTO) 21.8 % (2-12); NEUTROPHILS # (AUTO) 4.1 X10'3 (1.8-7.7); NEUTROPHILS % (AUTO) 66.5 % (42-75); PLATELET COUNT 177 X10'3 (140-440); RED CELL DISTRIBUTION WIDTH 15.5 % (11.5-14.5); WHITE BLOOD COUNT 6.2 X10'3 (4.5-11.0)
[2024-07-07 06:39] LABS: ALBUMIN 3.3 G/DL (3.4-5.0); ANION GAP 7 (8-16); BLOOD UREA NITROGEN 44 MG/DL (7-18); BUN/CREATININE RATIO 21.7 (10.0-20.0); CALCIUM 8.7 MG/DL (8.5-10.1); CHLORIDE 103 MMOL/L (99-107); CREATININE 2.03 MG/DL (0.60-1.10); GLUCOSE 224 MG/DL (70-104); POTASSIUM 4.2 MMOL/L (3.5-5.1); SODIUM 134 MMOL/L (135-145); TOTAL CARBON DIOXIDE 24.2 MMOL/L (24-32); eCRCL 37 ML/MIN; eGFR 32 ML/MIN
[2024-07-07 08:04] LABS: TOTAL CELLS COUNTED 100
[2024-07-07 08:05] LABS: ANISOCYTOSIS FEW; PLATELET ESTIMATE NORMAL; POIKILOCYTOSIS FEW
[2024-07-07 10:00] VITALS: BP 181/68; PULSE 74; RESP 18; TEMP 99; O2SAT 95
[2024-07-07] MEDS: CefTRIAXone/D5W-Rocephin 1gm 50 ML IV SCH (10:18)
[2024-07-07 11:00] VITALS: BP 163/65; PULSE 75; RESP 18; TEMP 98.4; O2SAT 97
[2024-07-07 12:55] VITALS: BP_SYST 163; PULSE 75
[2024-07-07] MEDS: amLODIPine 5mg tablet PO SCH (12:55)
[2024-07-07 13:49] VITALS: RESP 18; O2SAT 95
== END 2024-07-07 15:10 | disposition home or self-care (01) | DRG 637 ==
LOC: ER 21:49 → ED HOLD 07-06 03:04 → ORTHO 4S 07-07 08:50
PROVIDERS: ADMIT Internal Medicine Critical Care Medicine; ATTEND Family Medicine
DX: E11.649 Type 2 diabetes mellitus with hypoglycemia without coma (principal); G93.41 Metabolic encephalopathy; U07.1 COVID-19; T86.12 Kidney transplant failure; E78.00 Pure hypercholesterolemia, unspecified; E86.0 Dehydration; D72.810 Lymphocytopenia; E03.9 Hypothyroidism, unspecified; N17.0 Acute kidney failure with tubular necrosis; I12.9 Hypertensive chronic kidney disease with stage 1 through stage 4 chronic kidney disease, or unspecified chronic kidney disease; N18.9 Chronic kidney disease, unspecified; E11.42 Type 2 diabetes mellitus with diabetic polyneuropathy; E11.22 Type 2 diabetes mellitus with diabetic chronic kidney disease; T38.3X5A Adverse effect of insulin and oral hypoglycemic [antidiabetic] drugs, initial encounter; Y92.89 Other specified places as the place of occurrence of the external cause; Z79.899 Other long term (current) drug therapy; Z88.5 Allergy status to narcotic agent
CPT/HCPCS: 36415; 70450; 71045; 80048; 80053; 80305; 80320; 81001; 82948; 83036; 83735; 83880; 84100; 84145; 84443; 84484; 85007; 85025; 87081; 87502; 87503; 87811; 93005; 93306; 99285; A6590; G0378; J0360; J0696; J1100; J1200; J1630; J1644; J1815; J2060; J3490; J7030; J7042; J7507; J7517

== ENCOUNTER 2025-04-11 12:06 | Emergency (ER) | payer BC ==
[~2025-04-11] VITALS: Ht 182.9 cm; Wt 101.8 kg
[~2025-04-11 12:06] MED LIST changes: -FURO20TA4 PO; -INSU100I29 SQ; +INSU100I8 SQ; +LANTUS SQ; -LEVO250T74 PO; -NOVLG SQ; +PANT-47 PO; -PANT40TA54 PO; -SODI10PO PO
[2025-04-11 12:10] VITALS: TEMP 98
--- NOTE | 2025-04-11 12:28 | VISIT NOTE ---
ED Rapid Medical Assessment History This is a 74-year-old male with a history of diabetes and kidney transplant. The patient states that is he noticed about two days ago a small abrasion of the left lower garcia that became reddened inflamed. You want to go see his primary care physician Dr. Hernandez who stated did not look that bad and placed him on Keflex. The patient states that he began taking the Keflex yesterday morning. He says with the redness looks a little worse with the side accompanied the ER. He is not complaining of any pain. No discharge. No fever or chills. Exam: To inspection of the left lower extremity the patient has erythema that goes linear down the anterior aspect of the mid shaft tibia. There were couple of small abrasion appearing wounds that has scabbed over in the area. No circumferential erythema or edema. No warmth with the palpation of the area. No ascending lymphangitis. No fluctuance or discharge Assessment and Plan I evaluated the patient from triage and placed orders blood work to rule out any significant infection or hyperglycemia. The patient is placed back in the lobby pending an open ER bed. LUISITO SUNG Apr 11, 2025 12:28
[2025-04-11 12:47] VITALS: O2SAT 95
[2025-04-11 12:51] LABS: MEAN PLATELET VOLUME 8.7 FL (7.4-10.4); RED CELL DISTRIBUTION WIDTH 14.8 % (11.5-14.5)
[2025-04-11 12:53] LABS: CREATININE 2.13 MG/DL (0.60-1.10); TOTAL CARBON DIOXIDE 28.3 MMOL/L (24-32); eCRCL 34 ML/MIN; eGFR 31 ML/MIN
[2025-04-11] MEDS ORDERED: CefTRIAXone 250MG inj IM ONE (13:40)
--- NOTE | 2025-04-11 13:46 | Physician Documentation ---
History of Present Illness ~ Chief Complaint: Rash Stated Complaint: LOWER LEG SWELLING Time Seen by MD: 13:02 OK to notify your PCP?: Yes Primary Medical Doctor: [place] Source: patient Mode of Arrival: POV Exam Limitations: no limitations HPI This is a 74-year-old male who states he has a small abrasion to his left lower leg earlier this week and has a small amount of erythema surrounding it. He was seen two days ago by his primary care physician Dr. Hernandez who stated did not look too bad and place him on Keflex. The patient started the Keflex yesterday morning and states it redness got little bit worse. That has concerned because he is diabetic so he came to the ER for evaluation. He is not complaining of pain of the area. He denies red streaking of the leg. He denies fevers or chills. He denies discharge from the area. Medication Reconciliation Allergies: Coded Allergies: codeine (Unverified Adverse Reaction, Unknown, DIZZY, 04/11/25) Uncoded Allergies: LIQUID IRON (Allergy, Unknown, 09/28/16) Scheduled Amlodipine Besylate (Amlodipine Besylate), 1 TAB PO DAILY, (Reported) Aspirin (Aspirin), 1 TAB.CHEW PO DAILY, (Reported) Atorvastatin Calcium* (Lipitor*), 1 TABLET PO HS, (Reported) Carvedilol (Carvedilol), 6.25 MG PO Q12H Cholecalciferol (Vitamin D), 5 CAP PO DAILY, (Reported) Gabapentin (Gabapentin), 1 CAP PO HS, (Reported) Insulin Glargine,Hum.rec.anlog* (Lantus*), 14 UNIT SQ HS Insulin Lispro (Humalog), 0 UNIT SQ ACHS Levothyroxine Sodium (Levoxyl), 1 TAB PO DAILY, (Reported) Mycophenolate Mofetil (Mycophenolate Mofetil), 3 CAP PO Q12H, (Reported) Pantoprazole Sodium (PROTONIX tablet), 1 TAB PO BID, (Reported) Tacrolimus Anhydrous (Prograf), 1 CAP PO BID, (Reported) Past Medical History Past Medical History: High Cholesterol, Hypertension, Kidney Transplant, UTI, Diabetes, *CANCER* Past Surgical History: cancer surgery, orthopedic surgeries, other Other Past Surgical History: Kidney transplant Patient History: FH: diabetes mellitus maternal grandfather, Other Past Family History: NONCONTRIBUTORY Alcohol Use: None Drug Use: none Lives with: Family Lives In: Home Occupation: retired Physical Exam Vital Signs: Temperature: 98.0, Source: Oral, Heart Rate: 72, Respiratory Rate: 18, BP: 169/69, Pulse Oximetry: 95, Weight: 101.800 Oxygen Flow Rate: 0 Pulse Oximetry Reflects: adequate oxygenation General Appearance: alert, WD/WN, no apparent distress Extremities To inspection of the left lower extremity the patient has small abrasion to the distal 1/3 of the anterior tibia. There is some surrounding erythema. No circumferential erythema or edema. No warmth or tenderness to palpation of the area. No ascending lymphangitis. No purulence or discharge. Progress Results/Orders Results/Orders Orders - KAHLIL SUNG Ceftriaxone Inj (Rocephin Inj) (04/11/25 13:40) Completed Orders - KAHLIL SUNG Cbc/Diff (04/11/25 12:25) BMP (04/11/25 12:25) Vital Signs 04/11/25 04/11/25 04/11/25 12:10 12:47 12:47 Temp 98.0 Pulse 74 72 Resp 16 18 18 B/P (MAP) 160/71 169/69 (102) Pulse Ox 99 95 O2 Flow Rate 0 0 Laboratory Tests Test 04/11/25 12:35 White Blood Count 4.5 Red Blood Count 4.18 L Hemoglobin 12.1 L Hematocrit 36.0 L Mean Corpuscular Volume 86.1 Mean Corpuscular Hemoglobin 29.0 Mean Corpuscular Hemoglobin Concent 33.6 Red Cell Distribution Width 14.8 H Platelet Count 230 Mean Platelet Volume 8.7 Neutrophils (%) (Auto) 67.6 Lymphocytes (%) (Auto) 13.7 L Monocytes (%) (Auto) 14.7 H Eosinophils (%) (Auto) 2.6 Basophils (%) (Auto) 1.4 H Neutrophils # (Auto) 3.1 Lymphocytes # (Auto) 0.6 L Monocytes # (Auto) 0.7 Eosinophils # (Auto) 0.1 Basophils # (Auto) 0.1 CBC Comment Sodium Level 138 Potassium Level 4.8 Chloride Level 101 Carbon Dioxide Level 28.3 Anion Gap 9 Blood Urea Nitrogen 36 H Creatinine 2.13 H Estimated GFR/1.73 m2 31 BUN/Creatinine Ratio 16.9 Glucose Level 155 H Calcium Level 8.4 L Albumin 3.4 Chemistry Comments Medical Decision Making Additional information obtaine: N/A Findings In his some lab work with the patient all of which was within normal limits. Use hemodynamically stable in his nothing to indicate sepsis on the physical examination, vital signs and workup. The patient only started the antibiotics yesterday so I told him to continue with the hose and elevate the leg frequently. I gave him an injection of Rocephin 2 g IM here. Follow up with the primary care physician for recheck in the next two days. Return to the ER for any worsening or concerning symptoms. Differential Dx:Considerations: Include: Other (Cellulitis of the lower extremity. Wound left lower extremity. Infected wound left lower extremity.) Additional Comment Abrasion left lower extremity. Cellulitis left lower extremity. Infected wound left lower extremity. Departure Disposition: HOME / SELF CARE / HOMELESS Impression: Primary Impression: Cellulitis Condition: Stable Discharge Instructions: Cellulitis, Adult Additional Instructions: Continue with the oral antibiotic your prescribed with the primary care physician and elevate the leg frequently. If the redness worsens or you have any concerning symptoms such as fever or pain return to the ER immediately. Otherwise follow up with the primary care physician for recheck early next week. Referrals: NO PRIMARY CARE PROVIDER (PCP) Signature Scribe Signature: No scribe Attestation: The note accurately reflects work and decisions made by me.Kahlil LAWRENCE 04/11/25 13:45 KAHLIL SUNG Apr 11, 2025 13:46
[2025-04-11] MEDS: CefTRIAXone 1000mg IM Kit (w/lidocaine diluent) IM ONE (14:09)
[2025-04-11 14:17] VITALS: BP 154/70; PULSE 72; RESP 15
== END 2025-04-11 14:20 | disposition home or self-care (01) ==
LOC: ER 12:08
DX: S80.812A Abrasion, left lower leg, initial encounter (principal); L03.116 Cellulitis of left lower limb; E78.00 Pure hypercholesterolemia, unspecified; E11.9 Type 2 diabetes mellitus without complications; I10 Essential (primary) hypertension; Z88.5 Allergy status to narcotic agent; Z79.899 Other long term (current) drug therapy; Z79.82 Long term (current) use of aspirin; Z98.890 Other specified postprocedural states; X58.XXXA Exposure to other specified factors, initial encounter; Y93.89 Activity, other specified; Y92.89 Other specified places as the place of occurrence of the external cause; Y99.8 Other external cause status
CPT/HCPCS: 36415; 80048; 85025; 96372; 99283; J0696

== ENCOUNTER 2025-05-15 02:15 | Emergency (ER) | payer BC ==
[~2025-05-15] VITALS: Ht 182.9 cm; Wt 95.5 kg
[2025-05-15 02:53] VITALS: TEMP 98.6
[2025-05-15] MEDS: ipratropium/albuterol 3ml nebule NEB ONE (03:05)
[2025-05-15 03:07] VITALS: PULSE 57; RESP 14; O2SAT 97
--- NOTE | 2025-05-15 03:11 | Physician Documentation ---
History of Present Illness ~ Chief Complaint: Shortness of Breath Stated Complaint: SOB Time Seen by MD: 02:28 Primary Medical Doctor: [place] Mode of Arrival: POV HPI 74-year-old male presenting with shortness of breath and a cough He tells me that over the past couple of weeks he has had gradually worsening cough. This occurs primarily at night after he eats and lays down. He thinks maybe it is related to his acid reflux. Tonight the cough was so severe that he turned red in the face and could not breathe and so he was brought to the emergency department. He also has gradually increasing exertional shortness of breath. His son states that he looks short of breath when he walks. He also has increased leg swelling. He does have congestive heart failure and is on a water pill. He does not know the name. No fevers or chills. No chest pain. No abdominal symptoms otherwise. He does not know if he takes an antacid medication. Medication Reconciliation Allergies: Coded Allergies: codeine (Unverified Adverse Reaction, Unknown, DIZZY, 04/11/25) Uncoded Allergies: LIQUID IRON (Allergy, Unknown, 09/28/16) Scheduled Amlodipine Besylate (Amlodipine Besylate), 1 TAB PO DAILY, (Reported) Aspirin (Aspirin), 1 TAB.CHEW PO DAILY, (Reported) Atorvastatin Calcium* (Lipitor*), 1 TABLET PO HS, (Reported) Carvedilol (Coreg), 1 TAB PO Q12H, (Reported) Cholecalciferol (Vitamin D), 5 CAP PO DAILY, (Reported) Gabapentin (Gabapentin), 1 CAP PO HS, (Reported) Levothyroxine Sodium (Levoxyl), 1 TAB PO DAILY, (Reported) Mycophenolate Mofetil (Mycophenolate Mofetil), 3 CAP PO Q12H, (Reported) Pantoprazole Sodium (PROTONIX tablet), 1 TAB PO BID, (Reported) Tacrolimus Anhydrous (Prograf), 1 CAP PO BID, (Reported) Scheduled PRN albuterol inhaler (Pro-Air Inhaler), 2 PUFFS INH Q4HPRN PRN for wheezing Discontinued Medications Carvedilol (Carvedilol), 6.25 MG PO Q12H Discontinued Reason: Other Carvedilol* (Coreg*), 6.25 TAB PO Q12H, (Reported) Discontinued Reason: wrong med Insulin Glargine,Hum.rec.anlog* (Lantus*), 14 UNIT SQ HS Discontinued Reason: patient no longer taking Insulin Lispro (Humalog), 0 UNIT SQ ACHS Discontinued Reason: patient no longer taking Past Medical History Past Medical History: High Cholesterol, Hypertension, Kidney Transplant, UTI, Diabetes, *CANCER* Past Surgical History: cancer surgery, orthopedic surgeries, other Other Past Surgical History: Kidney transplant Patient History: FH: diabetes mellitus maternal grandfather, Other Past Family History: NONCONTRIBUTORY Alcohol Use: None Drug Use: none Lives with: Family Lives In: Home Occupation: retired Review of Systems Constitutional: Denies: fever Respiratory: Reports: cough, shortness of breath, SOB with exertion, wheezing Cardiovascular: Denies: chest pain Physical Exam Vital Signs: Temperature: 98.6, Source: Oral, Heart Rate: 56, Respiratory Rate: 14, BP: 142/48, Pulse Oximetry: 96, Weight: 95.450 Oxygen Flow Rate: 0 Physical Exam General: This is a pleasant and alert older man, with a frequent cough, son at bedside HEENT: Atraumatic, wearing a mask Heart: Regular rate and rhythm, loud systolic murmur, normal-appearing peripheral perfusion Lungs: Diminished breath sounds diffusely with expiratory wheezing and prolonged expiratory phase. Frequent dry cough Abdomen: Soft, distended abdomen, tight but nontender Extremities: Warm and well-perfused, significant pitting edema to bilateral lower extremities Neuro: Alert and oriented Psychiatric: Calm and cooperative with exam Progress Results/Orders Results/Orders Orders - LISBETH REIS MD Chest,Single View (05/15/25 03:20) Monitor (05/15/25 02:28) Saline Lock (05/15/25 02:28) Oxygen (05/15/25 02:28) Electrocardiogram (05/15/25 02:28) Hs Troponin I W Calculations (05/15/25 04:28) Hs Troponin I W Calculations (05/15/25 05:28) Completed Orders - LISBETH REIS MD Chest,Single View (05/15/25 03:20) Cbc/Diff (05/15/25 02:28) BMP (05/15/25 02:28) PBNP (05/15/25 02:28) Hs Troponin I W Calculations (05/15/25 02:28) Ipratropium/Albuterol Nebule (Ipratrop/A (05/15/25 03:05) Man Diff (05/15/25 02:56) Medications Received in ER Medications (Trade) Dose Ordered Sig/Tee Route PRN Reason Start Time Stop Time Status Last Admin Dose Admin (ipratrop/ albuterol 0.5-3(2.5) MG/3ml nebule) 3 ml ONCE ONCE NEB 05/15/25 03:05 05/15/25 03:06 DC 05/15/25 03:05 3 ML Vital Signs 05/15/25 05/15/25 05/15/25 05/15/25 02:18 02:53 02:56 03:07 Temp 98.6 Pulse 57 56 57 Resp 18 14 14 14 B/P (MAP) 158/52 142/48 (79) Pulse Ox 96 96 97 O2 Delivery Room Air* O2 Flow Rate 0 0 FiO2 N/A 05/15/25 03:17 Pulse 58 Pulse Ox 98 O2 Delivery Room Air* O2 Flow Rate 0 FiO2 N/A Laboratory Tests Test 05/15/25 02:56 White Blood Count 3.9 L Red Blood Count 3.60 L Hemoglobin 10.5 L Hematocrit 32.0 L Mean Corpuscular Volume 88.9 Mean Corpuscular Hemoglobin 29.2 Mean Corpuscular Hemoglobin Concent 32.8 L Red Cell Distribution Width 15.5 H Platelet Count 165 Mean Platelet Volume 9.4 Neutrophils (%) (Auto) 58.7 Lymphocytes (%) (Auto) 18.2 L Monocytes (%) (Auto) 16.9 H Eosinophils (%) (Auto) 4.0 Basophils (%) (Auto) 2.2 H Neutrophils # (Auto) 2.3 Lymphocytes # (Auto) 0.7 L Monocytes # (Auto) 0.7 Eosinophils # (Auto) 0.2 Basophils # (Auto) 0.1 CBC Comment Differential Total Cells Counted 100 Neutrophils % (Manual) 62.0 Lymphocytes % (Manual) 18.0 L Monocytes % (Manual) 15.0 H Eosinophils % (Manual) 5.0 Platelet Estimate Normal Red Blood Cell Morphology Normal Basophilic Stippling Sodium Level 139 Potassium Level 5.1 Chloride Level 105 Carbon Dioxide Level 26.4 Anion Gap 8 Blood Urea Nitrogen 40 H Creatinine 2.64 H Estimated GFR/1.73 m2 24 BUN/Creatinine Ratio 15.2 Glucose Level 219 H Calcium Level 8.0 L Troponin I High Sensitivity 42 Pro-B-Type Natriuretic Peptide 4450 H Albumin 2.9 L Chemistry Comments EKG/XRAY/CT/US/VASC/MRI EKG : Additional Comment I personally interpreted the EKG and this shows: Sinus rhythm, rate 57, QTC 388, T-wave inversions in the lateral leads, no STEMI Heart Score: Heart Score Response (Comments) Value History Slightly Suspicious 0 EKG Repolarization Disturb 1 Age >65 2 Risk Factors 1 or 2 risk factors 1 Troponin Normal limit 0 Total 4 Medical Decision Making Additional information obtaine: family Findings Family provides some history Heart Score: 4 Differential Dx:Considerations: Include: asthma, bronchitis, cardiogenic shock, CHF, COPD, dysrhythmia, myocardial infarction, pneumonia, upper resp. infection Additional Infomation The patient presents with a gradually worsening intermittent cough as well as g radually worsening shortness of breath and leg swelling. Here in the ED he is otherwise well-appearing. EKG without STEMI. Chest x-ray with no acute changes compared to previous. Labs show slightly worsening kidney function and slightly elevated BNP compared to previous values. He did sound wheezy, which improved after a nebulizer treatment. He then ambulated without hypoxia or significant shortness of breath. I did offer admission, but he declined, requested to go home. He will thus be discharged with a plan to increase his Lasix, double his morning dose for 5 days, to help decrease his edema. A prescription was sent for an albuterol inhaler. He will follow up with his primary care doctor for repeat laboratory testing within 1 week. Return precautions given. Departure Time of Disposition: 04:25 Disposition: HOME / SELF CARE / HOMELESS Impression: Primary Impression: Acute on chronic systolic heart failure Additional Impressions: Wheezing Acid reflux disease Condition: Improved Discharge Instructions: Gastroesophageal Reflux Disease, Adult, Heart Failure Medicines Referrals: NO PRIMARY CARE PROVIDER (PCP) Prescriptions albuterol inhaler (Pro-Air Inhaler) 8.5 Gm Inhaler 2 PUFFS INH Q4HPRN PRN for wheezing for 30 Days, #18 GM Prov: LISBETH REIS MD 05/15/25 Education Educated: Patient, Family Educated regarding: diagnosis, treatment, need for follow up Signature Scribe Signature: edgar Attestation: ILSBETH Heard MD May 15, 2025 03:11
[2025-05-15] MEDS ORDERED: CARV-50 PO (03:14)
[2025-05-15] MEDS ORDERED: CARV-49 PO (03:16)
[2025-05-15 03:17] VITALS: PULSE 58; O2SAT 98
[2025-05-15 03:17] LABS: MEAN PLATELET VOLUME 9.4 FL (7.4-10.4); RED CELL DISTRIBUTION WIDTH 15.5 % (11.5-14.5)
[2025-05-15 03:26] LABS: CREATININE 2.64 MG/DL (0.60-1.10); PRO BRAIN NATRIURETIC PEPTIDE 4450 PG/ML (0-125); TOTAL CARBON DIOXIDE 26.4 MMOL/L (24-32); eCRCL 27 ML/MIN; eGFR 24 ML/MIN
--- NOTE | 2025-05-15 03:42 | RADIOLOGY REPORT ---
CHEST RADIOGRAPH INDICATION: CP TECHNIQUE: 1 view COMPARISON: DI CHEST,SINGLE VIEW on DOS: 10/14/24, DI CHEST,SINGLE VIEW on DOS: 07/05/24, DI CHEST,SINGLE VIEW on DOS: 06/22/23, CHEST,SINGLE VIEW on DOS: 06/14/22, CHEST,SINGLE VIEW on DOS: 10/23/20 FINDINGS: Lines and Tubes: External leads. Lungs/Pleura: No focal consolidation, pleural effusion or pneumothorax. Interstitial opacities are unchanged. Cardiomediastinum: Within normal limits for technique. Other: No acute osseous abnormality. IMPRESSION: 1. No acute cardiopulmonary abnormality or change from the prior exam.
[2025-05-15 03:55] LABS: EOSINOPHILS % (MANUAL) 5.0 % (0-6); LYMPHOCYTES % (MANUAL) 18.0 % (21-51); MONOCYTES % (MANUAL) 15.0 % (2-12); NEUTROPHILS % (MANUAL) 62.0 % (42-75); PLATELET ESTIMATE NORMAL
[2025-05-15] MEDS ORDERED: ALBU8HFA INH (04:30)
[2025-05-15 05:29] VITALS: BP 155/61; PULSE 56; RESP 14; O2SAT 94
--- NOTE | 2025-05-15 06:14 | ELECTROCARDIOGRAPH REPORT ---
[facility] Test Date: 2025-05-15 Test Time: 02:20:32 Pat Name: JOSE ESPINOSA Department: EMERGENCY ROOM Room: Gender: M Emergency Department Rn: MERCEDEZ : 1950 Requested By: LISBETH REIS Order Number: [id number] Reading MD: Dr. CHRIS Lott Measurements Intervals Bruce Rate: 57 P: 10 AL: 213 QRS: -1 QRSD: 103 T: 188 QT: 398 QTc: 388 Interpretive Statements Sinus bradycardia Borderline prolonged AL interval Probable left atrial enlargement LVH with secondary repolarization abnormality Electronically Signed On 05-15-2025 18:12:[address] CHRIS Lott Please click the below link to view image of tracing.
== END 2025-05-15 04:46 | disposition home or self-care (01) ==
LOC: ER 02:15
DX: I11.0 Hypertensive heart disease with heart failure (principal); I50.23 Acute on chronic systolic (congestive) heart failure; R06.2 Wheezing; K21.9 Gastro-esophageal reflux disease without esophagitis; E11.9 Type 2 diabetes mellitus without complications; E78.00 Pure hypercholesterolemia, unspecified; Z88.5 Allergy status to narcotic agent; Z87.440 Personal history of urinary (tract) infections; Z94.0 Kidney transplant status; Z79.82 Long term (current) use of aspirin; Z79.899 Other long term (current) drug therapy; Z98.890 Other specified postprocedural states
CPT/HCPCS: 36415; 71045; 80048; 83880; 84484; 85007; 85025; 93005; 94640; 99285